=== PATIENT | female | born 1955 | race Caucasian/White ===

== ENCOUNTER 2016-09-14 12:35 | Emergency (ER) | payer OTHER, MEDICAID ==
[2016-09-14 12:50] VITALS: RESP 18; TEMP 98.1
--- NOTE | 2016-09-14 13:38 | EDPHY ---
H & P Time Seen by Provider: 09/14/16 13:05 HPI/ROS: This patient complains of right 5th finger pain at the metacarpophalangeal joint more than the PIP joint. She has noticed this over the past 3 days after awakening with pain on Wednesday morning. The pain is 4/10 intensity baseline becomes more severe with movement. No other exacerbating factors. She does recall any trauma to the finger but wonders if she may have injured it while sleepy getting up from bed catching in the blanket or slamming up against a piece of furniture. She denies any other complaints except for chronic fatigue she attributes to her idiopathic anemia. ROS: Neuro: No numbness or tingling the finger Musculoskeletal: No other acute bony pain or joint pain. She does know mild swelling at the metacarpophalangeal joint of the affected finger. Integumentary: No overlying skin rash or discoloration. 5 point ROS is otherwise negative Past Medical/Surgical History: Morbid obesity Idiopathic anemia Type 2 diabetes Dyslipidemia Chronic pain Smoking Status: Former smoker Physical Exam: Physical Exam Vital signs are normal. General: No acute distress Lungs: No respiratory distress. Cardiac: Brisk capillary refill is intact throughout. Extremities: Atraumatic normal except for right hand Right hand: Patient has tenderness at the 5th metacarpophalangeal joint and PIP joint. She maintains a full range of motion but has increased pain with flexion. There is minimally purse that the bowl swelling at the metacarpophalangeal joint. No overlying erythema. Skin: No rash or pallor. Neuro: Alert with no sensorimotor deficits in the affected extremity. Initial differential diagnosis: Bony lesion, degenerative arthritis, fracture , sprain Constitutional: Initial Vital Signs Temperature (C) 36.7 C 09/14/16 12:40 Heart Rate 94 09/14/16 12:40 Respiratory Rate 18 09/14/16 12:40 Blood Pressure 144/69 H 09/14/16 12:40 O2 Sat (%) 91 L 09/14/16 12:40 O2 Delivery Mode Room Air Allergies/Adverse Reactions: cephalexin monohydrate [From Keflex] Allergy (Intermediate, Verified 09/14/16 12 :38) Rash meperidine HCl [From Demerol] Allergy (Intermediate, Verified 09/14/16 12:38) Vomiting Penicillins Allergy (Intermediate, Verified 09/14/16 12:38) Rash Sulfa (Sulfonamide Antibiotics) Allergy (Intermediate, Verified 09/14/16 12:38) Hives Home Medications: Medication Instructions Recorded Aspirin 02/01/16 Clonazepam 02/01/16 DULoxetine 02/01/16 Estradiol 02/01/16 Furosemide 02/01/16 LISINOPRIL/HYDROCHLOROTHIAZIDE 02/01/16 Linzess 02/01/16 Lisinopril 02/01/16 Novolog Mix 70/30 (*) 02/01/16 Pantoprazole Sodium 02/01/16 Propylene Glycol 02/01/16 Ropinirole HCl 02/01/16 SIMVASTATIN 02/01/16 Trulicity 02/01/16 MDM/Departure - MDM Diagnostics: Hand x-ray is negative for fracture. This film was already read by the radiologist and I also reviewed it. Imaging Results: Imaging Impressions Finger X-Ray 09/14/16 13:10 Impression: No evidence for acute osseous abnormality. Stable mild degenerative change as above. ED Course/Re-evaluation: We keesha-taped the patient's finger for comfort. I counseled regarding her negative x-ray the exception DJD. I suspect that her symptoms are attributable to DJD. She may have also slept on the hand. 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
[2016-09-14 14:05] VITALS: BP 125/72; PULSE 85; O2SAT 96
== END 2016-09-14 13:59 | disposition home or self-care (01) ==
LOC: CED 12:35
DX: M79.644 Pain in right finger(s) (principal); M19.041 Primary osteoarthritis, right hand; E11.9 Type 2 diabetes mellitus without complications; Z79.82 Long term (current) use of aspirin; Z87.891 Personal history of nicotine dependence
CPT/HCPCS: 73140-PO

== ENCOUNTER 2017-03-17 19:24 | Emergency (ER) | payer OTHER, MEDICAID ==
[2017-03-17 19:41] VITALS: RESP 18
--- NOTE | 2017-03-17 20:00 | EDPHY ---
H & P Stated Complaint: diarrhea since 03/07, blood in stool tonight Time Seen by Provider: 03/17/17 19:59 - Personal History Current Tetanus/Diphtheria Vaccine: Yes Tetanus Vaccine Date: <10 years - Medical/Surgical History Hx Asthma: No Hx Chronic Respiratory Disease: No Hx Diabetes: Yes Hx Cardiac Disease: Yes Hx Renal Disease: No Hx Cirrhosis: No Hx Alcoholism: No Hx HIV/AIDS: No Hx Splenectomy or Spleen Trauma: No Other PMH: right wrist carpal tunnel surgery,. back surgery. MEd hx-anemia, thyroid and insulin dependant diabetes,chronic pain, ROLDAN, HTN - Social History Smoking Status: Former smoker Constitutional: Initial Vital Signs Temperature (C) 36.9 C 03/17/17 19:36 Heart Rate 97 03/17/17 19:36 Respiratory Rate 18 03/17/17 19:36 Blood Pressure 155/108 H 03/17/17 19:36 O2 Sat (%) 95 03/17/17 19:36 O2 Delivery Mode Room Air Allergies/Adverse Reactions: cephalexin monohydrate [From Keflex] Allergy (Intermediate, Verified 03/17/17 19 :41) Rash meperidine HCl [From Demerol] Allergy (Intermediate, Verified 03/17/17 19:41) Vomiting Penicillins Allergy (Intermediate, Verified 03/17/17 19:41) Rash Sulfa (Sulfonamide Antibiotics) Allergy (Intermediate, Verified 03/17/17 19:41) Hives gabapentin Allergy (Verified 03/17/17 19:41) Home Medications: Medication Instructions Recorded Aspirin 02/01/16 Clonazepam 02/01/16 DULoxetine 02/01/16 Estradiol 02/01/16 Furosemide 02/01/16 LISINOPRIL/HYDROCHLOROTHIAZIDE 02/01/16 Linzess 02/01/16 Lisinopril 02/01/16 Novolog Mix 70/30 (*) 02/01/16 Pantoprazole Sodium 02/01/16 Propylene Glycol 02/01/16 Ropinirole HCl 02/01/16 SIMVASTATIN 02/01/16 Trulicity 02/01/16 Medical Decision Making ED Course/Re-evaluation: CHIEF COMPLAINT: Rectal bleeding HISTORY OF PRESENT ILLNESS: This patient is a pleasant 61 y/o female with history of hemorrhoids complaining of bright red rectal bleeding. She has had diarrhea since . Today, she has bright red blood per rectum "like one of them red-assed monkeys". She denies constipation. Endorses some darker colored blood clots, but denies melena. She has not noted any blood in her underwear, only with wiping. Endorses current external hemorrhoids. She denies any abdominal pain or rectal discomfort. She is followed by GI and is scheduled for colonoscopy on . She has no further complaints at this time. REVIEW OF SYSTEMS: A 10 point review of systems was performed and is negative with the exception of the elements mentioned in the history of present illness. PHYSICAL EXAM: HR, BP, O2 Sat, RR. Temp noted General Appearance: Alert, well hydrated, appropriate, and non-toxic appearing. Head: Atraumatic without scalp tenderness or obvious injury Eyes: Pupils equal, round, reactive to light and accommodation, EOMI, no trauma , no injection. Ears: Clear bilaterally, no perforation, normal landmarks Nose: Atraumatic, no rhinorrhea, clear. Throat: There is no erythema or exudates, no lesions, normal tonsils, mucus membranes moist. Neck: Supple, nontender, no lymphadenopathy. Respiratory: No retractions, no distress, no wheezes, and no accessory muscle use. Lungs are clear to auscultation bilaterally. Cardiovascular: Regular rate and rhythm. Good capillary refill all extremities. Gastrointestinal: Abdomen is soft, nontender, non-distended, no masses, no rebound, no guarding, no peritoneal signs. Musculoskeletal: Normal active ROM of all extremities, atraumatic. Neurological: Alert, appropriate, and interactive. Nonfocal neuro exam. Skin: No rashes, good turgor, no nodules on palpation. Past medical history: Anemia. Hypothyroid. Insulin-dependent diabetes. Chronic pain. Hypertension. Past surgical history: Right wrist carpal tunnel surgery. Back surgery. Family history: Noncontributory. 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 Lives in [place]. DIFFERENTIAL DIAGNOSIS: Includes but not limited to external hemorrhoids, internal hemorrhoids, lower GI bleed, upper GI bleed, ulcerative colitis, anal fissure, colon polyps. MEDICAL DECISION MAKING: This 61 y/o female with history of hemorrhoids presents for evaluation of bright red bleeding per rectum. History is consistent with internal hemorrhoids. Patient is alert, well-appearing. She agrees that her symptoms are consistent with prior hemorrhoids. Her last colonoscopy was last summer, and she is scheduled for another on 03/30/17, two weeks from now. She declines anoscopy at this time. Plan to discharge home in good condition. She will follow up with GI and proceed with her colonoscopy as scheduled. Return precautions discussed. She is comfortable with this plan. Departure - Departure Disposition: Home, Routine, Self-Care Clinical Impression: Internal hemorrhoid, bleeding Condition: Good Instructions: Hemorrhoids (ED) Additional Instructions: 1. Follow up with your GI doctor for further evaluation. 2. Return to the emergency department if you have large quantities of bright red blood per rectum, dark tar-like stools, if you vomit blood, or if you develop abdominal pain, weakness, or other worsening of condition. Referrals: ADAMA ENGEL [Other] - As per Instructions Sergo Daly MD [Medical Doctor] - As per Instructions Report Scribed for: Tashi Turcios Report Scribed by: Lindsey Morales Date of Report: 03/17/17 Time of Report: 20:33
[2017-03-17 20:23] VITALS: BP 138/86; PULSE 90; TEMP 98.8; O2SAT 91
== END 2017-03-17 20:23 | disposition home or self-care (01) ==
DX: K64.8 Other hemorrhoids (principal); I10 Essential (primary) hypertension; E10.9 Type 1 diabetes mellitus without complications; Z79.82 Long term (current) use of aspirin; Z87.891 Personal history of nicotine dependence

== ENCOUNTER 2017-03-26 14:26 | Emergency (ER) | payer OTHER, MEDICAID ==
--- NOTE | 2017-03-26 15:01 | CPEKG ---
Heart Rate: 94 RR Interval: 638 P-R Interval: 168 QRSD Interval: 90 QT Interval: 360 QTC Interval: 451 P Apollo: 53 QRS Apollo: 57 T Wave Apollo: 2 EKG Severity - BORDERLINE ECG - EKG Impression: SINUS RHYTHM Electronically Signed By: Kwame Pisano 26-Mar-2017 15:16:27
--- NOTE | 2017-03-26 15:12 | EDPHY ---
H & P Stated Complaint: L shoulder/L neck pain vs walked into door jam 1 week ago Time Seen by Provider: 03/26/17 14:58 HPI/ROS: CHIEF COMPLAINT: Left shoulder pain HISTORY OF PRESENT ILLNESS: The patient presents the ED with complaints left shoulder pain for the past 7 days after she accidentally struck a door jam. She denies any associated numbness or weakness. She has pain with palpation associated movement. She denies any chest pain or shortness of breath. The patient denies any additional acute complaints. REVIEW OF SYSTEMS: A comprehensive 10 point review of systems is otherwise negative aside from elements mentioned in the history of present illness. - Personal History Tetanus Vaccine Date: <10 years - Medical/Surgical History Hx Asthma: No Hx Chronic Respiratory Disease: No Hx Diabetes: Yes Hx Cardiac Disease: Yes Hx Renal Disease: No Hx Cirrhosis: No Hx Alcoholism: No Hx HIV/AIDS: No Hx Splenectomy or Spleen Trauma: No Other PMH: right wrist carpal tunnel surgery,. back surgery. gall bladder surg. hysterectomy. MEd hx-anemia,thyroid and insulin dependant diabetes, chronic pain, ROLDAN, HTN - Social History Smoking Status: Former smoker - Physical Exam Exam: General Appearance: Obese female, no acute distress Eyes: Pupils equal and round no pallor or injection ENT, Mouth: Mucous membranes moist Respiratory: There are no retractions, lungs are clear to auscultation Cardiovascular: Regular rate and rhythm Gastrointestinal: Abdomen is soft and nontender, no masses, bowel sounds normal Neurological: A&O, normal motor function, normal sensory exam, normal cranial nerves Skin: Warm and dry, no rashes Musculoskeletal: Tenderness to palpation along the left clavicle and over the proximal humerus, no crepitus, no deformity Extremities: symmetrical, full range of motion Psychiatric: Patient is oriented X 3, there is no agitation Constitutional: Initial Vital Signs Temperature (C) 37.2 C 03/26/17 14:30 Heart Rate 96 03/26/17 14:30 Respiratory Rate 18 03/26/17 14:30 Blood Pressure 117/77 03/26/17 14:30 O2 Sat (%) 94 03/26/17 14:30 O2 Delivery Mode Room Air Allergies/Adverse Reactions: cephalexin monohydrate [From Keflex] Allergy (Intermediate, Verified 03/17/17 19 :41) Rash meperidine HCl [From Demerol] Allergy (Intermediate, Verified 03/17/17 19:41) Vomiting Penicillins Allergy (Intermediate, Verified 03/17/17 19:41) Rash Sulfa (Sulfonamide Antibiotics) Allergy (Intermediate, Verified 03/17/17 19:41) Hives gabapentin Allergy (Verified 03/17/17 19:41) Home Medications: Medication Instructions Recorded Aspirin 02/01/16 Clonazepam 02/01/16 DULoxetine 02/01/16 Estradiol 02/01/16 Furosemide 02/01/16 LISINOPRIL/HYDROCHLOROTHIAZIDE 02/01/16 Linzess 02/01/16 Lisinopril 02/01/16 Novolog Mix 70/30 (*) 02/01/16 Pantoprazole Sodium 02/01/16 Propylene Glycol 02/01/16 Ropinirole HCl 02/01/16 SIMVASTATIN 02/01/16 Trulicity 02/01/16 Hydrocodone/APAP 5/325 [[place] 1 - 2 each PO Q6 PRN #20 tab 03/26/17 5/325] Lidocaine 5% [Lidoderm 5% Patch 1 ea TD DAILY #12 patch 03/26/17 (*)] Ondansetron Odt [Zofran Odt] 4 mg PO Q4PRN PRN #20 tab 03/26/17 Medical Decision Making - Diagnostics EKG Interpretation: EKG: Complete interpretation has been separately recorded in the [facility] archive. Summary impression: Sinus rhythm Imaging Results: Imaging Impressions Shoulder X-Ray 03/26/17 15:07 Impression: 1. No acute fracture or AC separation. 2. Osteoarthritis and features suggestive of rotator cuff calcific tendinitis. ED Course/Re-evaluation: The patient presents the ED for evaluation of traumatic left shoulder pain. Her x-ray demonstrates no evidence of an obvious fracture. The patient is noted to be neurologically intact. Her EKG is unremarkable. The patient was placed in a sling. She was given Zofran and pain medications. She is also given a prescription for lidocaine patches. The patient is advised to follow up with our on-call orthopedic surgeon for any pain which persists past 7 days as this may be the sign of an injury which is not detected on x-ray today. Differential Diagnosis: Differential diagnosis considered includes fracture, sprain, dislocation - Data Points Medications Given: Discontinued Medications Hydrocodone Bitart/Acetaminophen ([place] 5/325) 2 tab PO EDNOW ONE Stop: 03/26/17 15:43 Last Admin: 03/26/17 15:47 Dose: 2 tab Lidocaine (Lidoderm 5%) 1 ea TD EDNOW ONE Stop: 03/26/17 15:42 Last Admin: 03/26/17 15:48 Dose: 1 ea Ondansetron HCl (Zofran Odt) 4 mg PO EDNOW ONE Stop: 03/26/17 15:43 Last Admin: 03/26/17 15:47 Dose: 4 mg Departure - Departure Disposition: Home, Routine, Self-Care Clinical Impression: Sprain of shoulder, left Condition: Good Instructions: Shoulder Sprain (ED) Additional Instructions: 1. Take Ibuprofen or Motrin 600 mg by mouth three times a day. 2. Lidocaine patch as needed for pain. 3. Please schedule a follow-up with our on-call orthopedic surgeon Dr. Chase for any unimproved symptoms. 4. Zofran as needed for nausea 5. [place] as needed for severe pain Referrals: [facility] [Other] - As per Instructions Prescriptions: Lidocaine 5% [Lidoderm 5% Patch (*)] 1 ea TD DAILY #12 patch Ondansetron Odt [Zofran Odt] 4 mg PO Q4PRN PRN #20 tab PRN Reason: For Nausea
[2017-03-26] MEDS ORDERED: LIDOCAINE 5% 1 EA PATCH TD ONE (15:41)
[2017-03-26] MEDS ORDERED: ONDANSETRON DISINTEGRATING 4 MG TAB PO ONE (15:42)
[2017-03-26] MEDS ORDERED: HYDROCODONE/APAP 5/325 TAB PO ONE (15:42)
[2017-03-26 16:11] VITALS: BP 120/70; PULSE 70; RESP 14; TEMP 98.2; O2SAT 98
[2017-03-26] MEDS ORDERED: PATCH REMOVAL 1 EA PATCH TD SCH (21:00)
== END 2017-03-26 16:12 | disposition home or self-care (01) ==
DX: S43.402A Unspecified sprain of left shoulder joint, initial encounter (principal); I10 Essential (primary) hypertension; E11.9 Type 2 diabetes mellitus without complications; Z87.891 Personal history of nicotine dependence; Z79.82 Long term (current) use of aspirin; Z79.4 Long term (current) use of insulin; W22.8XXA Striking against or struck by other objects, initial encounter

== ENCOUNTER 2017-04-22 14:35 | Emergency (ER) | payer OTHER, MEDICAID ==
[2017-04-22 14:40] VITALS: RESP 18
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
[2017-04-22] MEDS ORDERED: OXYCODONE/APAP 5/325 TAB PO ONE (16:19)
[2017-04-22 16:23] VITALS: BP 113/65; PULSE 80; TEMP 97.5; O2SAT 95
== END 2017-04-22 16:52 | disposition home or self-care (01) ==
DX: S39.012A Strain of muscle, fascia and tendon of lower back, initial encounter (principal); S76.011A Strain of muscle, fascia and tendon of right hip, initial encounter; I10 Essential (primary) hypertension; E11.9 Type 2 diabetes mellitus without complications; Z87.891 Personal history of nicotine dependence; Z79.82 Long term (current) use of aspirin; Z79.4 Long term (current) use of insulin; V00.838A Other accident with motorized mobility scooter, initial encounter

== ENCOUNTER 2017-05-03 15:07 | Emergency (ER) | payer OTHER, MEDICAID ==
[2017-05-03] MEDS ORDERED: HYDROmorphONE/DILAUDID 1 MG/ML INJ IVP ONE (15:50)
--- NOTE | 2017-05-03 15:54 | EDPHY ---
H & P Stated Complaint: left shoulder pain, can't sleep at night Time Seen by Provider: 05/03/17 15:25 HPI/ROS: CHIEF COMPLAINT: Left shoulder pain HISTORY OF PRESENT ILLNESS: This is a 62-year-old female with multiple medical problems including insulin-dependent diabetes, hypertension, chronic pain, and obesity. She presents today with left shoulder pain that has been present since March. In March she ran into a door jam with her left shoulder and has had pain since. She was seen at [facility] Emergency Department on March 26. At that time she had an EKG performed and a left shoulder x-ray that showed calcific tendinitis suggestive of rotator cuff. She was referred to Orthopedic surgery but has not followed up. At home she has tried occasional Aleve, heat, massage, and last week she took 2 left over tramadol. None of these have helped very much or for very long. She has been advised that she should not take NSAIDs but she is not certain why. She has had no new trauma. She denies numbness or weakness. The pain is sometimes worse at night and she finds it difficult to get into a comfortable position for sleep. She is right handed. REVIEW OF SYSTEMS: A ten point review of systems was performed and is negative with the exception of the items mentioned in the HPI. She also mentions that her voice is hoarse today. She does not have a sore throat. She is having some shortness of breath , worse with exertion. She notices it particularly to day. She does not have chest pain. She had a cardiac workup 1 year ago and has been told that she has a strong heart. It does not sound as if she had any stress testing performed. Past medical history: 1. IDDM 2. Hypertension 3. Hypothyroid 4. Chronic pain 5. Anemia 6. Obesity Past surgical history: 1. Cholecystectomy 2. Hysterectomy 3. Lumbar surgery 4. Bilateral carpal tunnel release Social history: She lives with her daughter. She quit smoking over 30 years ago. She drinks alcohol on rare occasion. General Appearance: Alert. Vital signs reviewed. Room air pulse ox 96%. Respiratory rate 20. Eyes: Pupils equal and round, no conjunctival injection, no discharge. Anicteric. Neck: No lymphadenopathy, supple. Nontender over the cervical spine. Respiratory: Lungs are clear to auscultation; no wheezes, rales, or rhonchi. Cardiovascular: Regular rate and rhythm; no murmur, rub, or gallop. Gastrointestinal: Abdomen is soft and nontender, obese. Skin: Warm and diaphoretic on the face, no rashes on exposed skin, normal color. Back: Nontender to palpation over the thoracolumbar spine. Extremities: No obvious shoulder asymmetry. There is tenderness to palpation over the left trapezius with some palpable muscle spasm. She has pain with abduction of her left arm above 90 degrees, no drop arm weakness and no difficulty with external rotation on the left.. Strength is 5/5 with testing of bilateral bed control specialist, biceps, and triceps. Neurological: Alert and oriented. Moving all four extremities easily and equally. Normal sensation to light touch over both upper extremities. Psychiatric: Normal affect. - Personal History Tetanus Vaccine Date: <10 years - Medical/Surgical History Hx Asthma: No Hx Chronic Respiratory Disease: No Hx Diabetes: Yes Hx Cardiac Disease: No Hx Renal Disease: No Hx Cirrhosis: No Hx Alcoholism: No Hx HIV/AIDS: No Hx Splenectomy or Spleen Trauma: No Other PMH: right wrist carpal tunnel surgery,. back surgery. gall bladder surg. hysterectomy. MEd hx-anemia,and insulin dependant diabetes,chronic pain , ROLDAN, HTN - Social History Smoking Status: Former smoker Constitutional: Initial Vital Signs Temperature (C) 36.7 C 05/03/17 15:10 Heart Rate 87 05/03/17 15:10 Respiratory Rate 20 05/03/17 15:10 Blood Pressure 113/82 H 05/03/17 15:10 O2 Sat (%) 96 05/03/17 15:10 O2 Delivery Mode Room Air Allergies/Adverse Reactions: cephalexin monohydrate [From Keflex] Allergy (Intermediate, Verified 05/03/17 15 :15) Rash meperidine HCl [From Demerol] Allergy (Intermediate, Verified 05/03/17 15:15) Vomiting Penicillins Allergy (Intermediate, Verified 05/03/17 15:15) Rash Sulfa (Sulfonamide Antibiotics) Allergy (Intermediate, Verified 05/03/17 15:15) Hives gabapentin Allergy (Verified 05/03/17 15:15) Rash Home Medications: Medication Instructions Recorded Aspirin 02/01/16 Clonazepam 02/01/16 DULoxetine 02/01/16 Estradiol 02/01/16 Furosemide 02/01/16 LISINOPRIL/HYDROCHLOROTHIAZIDE 02/01/16 Linzess 02/01/16 Lisinopril 02/01/16 Novolog Mix 70/30 (*) 02/01/16 Pantoprazole Sodium 02/01/16 Propylene Glycol 02/01/16 Ropinirole HCl 02/01/16 SIMVASTATIN 02/01/16 Trulicity 02/01/16 Lidocaine 5% [Lidoderm 5% Patch 1 ea TD DAILY #12 patch 03/26/17 (*)] Cyclobenzaprine [Flexeril 10 MG 10 mg PO TID PRN #15 tab 05/03/17 (*)] oxyCODONE/APAP 5/325 [Percocet 1 - 2 tab PO Q4H PRN #15 tab 05/03/17 5/325 (RX)] Medical Decision Making ED Course/Re-evaluation: Left shoulder pain that I suspect is musculo skeletal, possibly a rotator cuff tendinopathy or injury. She has a history of chronic pain but has not taken opioids for quite some time. In the past she has been on multiple pain medications. She now uses CBD for restless legs and an occasional Aleve. She was given a small quantity of Lugoff in March but states that it did not help her very much. She had 2 left over tramadol that she took last week, with minimal relief. I do not feel that would be beneficial to repeat her left shoulder x-ray as there has been no new trauma. I stressed the importance of follow-up with an orthopedist. She was unable to reach Dr. Chase's office. I am prescribed providing his number again and also the number of today's on-call orthopedist. She has been seen at [facility] in the past for carpal tunnel syndrome and I have advised her to call them for follow-up also. For now will try to achieve some pain relief for her. She is being given 2 Percocet p.o. in the emergency department. She will be discharged home with prescription for Percocet dispense #15 and Flexeril. I do not suspect drug-seeking behavior. Differential Diagnosis: I considered a differential diagnosis that includes but is not limited to fracture, dislocation, bursitis, tendinopathy, rotator cuff injury, and impingement. - Data Points Medications Given: Discontinued Medications Hydromorphone HCl (Dilaudid) 1 mg IVP EDNOW ONE Stop: 05/03/17 15:51 Last Admin: 05/03/17 16:01 Dose: Not Given Oxycodone/Acetaminophen (Percocet 5/325) 2 tab PO EDNOW ONE Stop: 05/03/17 16:04 Last Admin: 05/03/17 16:06 Dose: 2 tab Departure - Departure Disposition: Home, Routine, Self-Care Clinical Impression: Shoulder pain, left Qualifiers: Chronicity: chronic Qualified Code(s): M25.512 - Pain in left shoulder Condition: Good Instructions: Shoulder Pain (ED) Additional Instructions: You were referred to Dr. Anjel Chase in March and I am providing that referral again. I am also referring her to the orthopedist on duty for the emergency department today. Since you have been seen at [facility] , I recommend that you call them to see if you can arrange an appointment to have your shoulder evaluated. Referrals: Darryn Palacio MD [Medical Doctor] - As per Instructions Anjel Chase MD [Medical Doctor] - As per Instructions Stand Alone Forms: Narcotic Guidelines Prescriptions: Cyclobenzaprine [Flexeril 10 MG (*)] 10 mg PO TID PRN #15 tab PRN Reason: Spasms oxyCODONE/APAP 5/325 [Percocet 5/325 (RX)] 1 - 2 tab PO Q4H PRN #15 tab PRN Reason: Pain, Severe
[2017-05-03] MEDS ORDERED: OXYCODONE/APAP 5/325 TAB ONE (16:00)
[2017-05-03] MEDS ORDERED: OXYCODONE/APAP 5/325 TAB PO ONE (16:03)
[2017-05-03 16:39] VITALS: BP 110/70; PULSE 72; RESP 14; TEMP 97.9; O2SAT 95
== END 2017-05-03 16:38 | disposition home or self-care (01) ==
LOC: CED 15:07
DX: M25.512 Pain in left shoulder (principal); E11.9 Type 2 diabetes mellitus without complications; I10 Essential (primary) hypertension; Z79.4 Long term (current) use of insulin; Z79.82 Long term (current) use of aspirin; Z87.891 Personal history of nicotine dependence

== ENCOUNTER → 2017-05-25 | Outpatient (CLI) | payer OTHER, MEDICAID | LOC: CIMAGING 08:39 | PROVIDERS: ATTEND Internal Medicine | DX: Z13.89 Encounter for screening for other disorder (principal) | CPT/HCPCS: 76705-PO ==

== ENCOUNTER 2017-06-02 15:47 | Emergency (ER) | payer OTHER, MEDICAID ==
[2017-06-02] MEDS ORDERED: NS 1,000 ML IV ONE (16:32)
[2017-06-02] MEDS ORDERED: ONDANSETRON 4 MG/2 ML VIAL IVP ONE (16:32)
[2017-06-02] MEDS ORDERED: HYDROmorphONE/DILAUDID 2 MG/ML INJ IVP ONE ×2 (16:32→18:39)
--- NOTE | 2017-06-02 16:35 | EDPHY ---
H & P Stated Complaint: Abd pain ~3 yrs;worse over past 24 hrs;sent here by surg for CT scan Time Seen by Provider: 06/02/17 16:24 HPI/ROS: CHIEF COMPLAINT: Right groin pain HISTORY OF PRESENT ILLNESS: Patient is a 62-year-old morbidly obese female comes to the emergency department complaining of right lower quadrant/inguinal pain. She states that she has had this pain for about 3 years and has seen multiple doctors. She states that she has had colonoscopies and swallowed pill cameras and had CT scans and no diagnosis has been made. She has a history of appendectomy, cholecystectomy and total hysterectomy. 1 week ago she had an ultrasound to rule out hernia. Her primary referred her to Dr. Marcelina Contreras saw her today. She states that today her pain is significantly worse than baseline. Dr. Contreras requested she come to the ER for CT scanning. She has not had a fever. She states that she is constipated in the morning and then has diarrhea in the evenings. She does not take laxatives. No urinary symptoms. No fevers. REVIEW OF SYSTEMS: Constitutional: denies: chills, fever, recent illness, recent injury EENTM: denies: blurred vision, double vision, nose congestion Respiratory: denies: cough, shortness of breath Cardiac: denies: chest pain, irregular heart rate, lightheadedness, palpitations Gastrointestinal/Abdominal: See HPI Genitourinary: denies: dysuria, frequency, hematuria, pain Musculoskeletal: denies: joint pain, muscle pain Skin: denies: lesions, rash, jaundice, bruising Neurological: denies: headache, numbness, paresthesia, tingling, dizziness, weakness Hematologic/Lymphatic: denies: blood clots, easy bleeding, easy bruising Immunologic/allergic: denies: HIV/AIDS, transplant EXAM: GENERAL: Morbidly obese, in pain, writhing HEAD: Atraumatic, normocephalic. EYES: Pupils equal round and reactive to light, extraocular movements intact, sclera anicteric, conjunctiva are normal. ENT: TMs normal, nares patent, oropharynx clear without exudates. Moist mucous membranes. NECK: Normal range of motion, supple without lymphadenopathy or JVD. LUNGS: Breath sounds clear to auscultation bilaterally and equal. No wheezes rales or rhonchi. HEART: Regular rate and rhythm without murmurs, rubs or gallops. ABDOMEN: Tender right lower quadrant inguinal region, no palpable hernia palm morbid obesity, no rash. normoactive bowel sounds. No guarding, no rebound. No masses appreciated. BACK: No CVA tenderness, no spinal tenderness, step-offs or deformities EXTREMITIES: Normal range of motion, no pitting or edema. No clubbing or cyanosis. NEUROLOGICAL: Cranial nerves II through XII grossly intact. Normal speech, normal gait. 5/5 strength, normal movement in all extremities, normal sensation PSYCH: Normal mood, normal affect. SKIN: Warm, dry, normal turgor, no visible rashes or lesions. Source: Patient Exam Limitations: No limitations - Personal History Current Tetanus Diphtheria and Acellular Pertussis (TDAP): Yes Tetanus Vaccine Date: <10 years - Medical/Surgical History Hx Asthma: No Hx Chronic Respiratory Disease: No Hx Diabetes: Yes Hx Cardiac Disease: No Hx Renal Disease: No Hx Cirrhosis: No Hx Alcoholism: No Hx HIV/AIDS: No Hx Splenectomy or Spleen Trauma: No Other PMH: right wrist carpal tunnel surgery,. back surgery. gall bladder surg. hysterectomy. MEd hx-anemia,and insulin dependant diabetes,chronic pain , ROLDAN, HTN - Family History Significant Family History: No pertinent family hx - Social History Smoking Status: Former smoker Alcohol Use: Sober Drug Use: None Constitutional: Initial Vital Signs Temperature (C) 36.6 C 06/02/17 15:50 Heart Rate 78 06/02/17 15:50 Respiratory Rate 18 06/02/17 15:50 Blood Pressure 127/76 H 06/02/17 15:50 O2 Sat (%) 96 06/02/17 15:50 O2 Delivery Mode Nasal Cannula Allergies/Adverse Reactions: cephalexin monohydrate [From Keflex] Allergy (Intermediate, Verified 06/02/17 15 :50) Rash meperidine HCl [From Demerol] Allergy (Intermediate, Verified 06/02/17 15:50) Vomiting Penicillins Allergy (Intermediate, Verified 06/02/17 15:50) Rash Sulfa (Sulfonamide Antibiotics) Allergy (Intermediate, Verified 06/02/17 15:50) Hives gabapentin Allergy (Verified 06/02/17 15:50) Rash Home Medications: Medication Instructions Recorded Aspirin [Aspirin 325 mg (*)] 325 mg PO DAILY 06/02/17 DULoxetine [Cymbalta 60 MG (*)] 60 mg PO DAILY 06/02/17 Estradiol [Estradiol 1 MG (*)] 1 mg PO DAILY 06/02/17 Furosemide [Lasix 20 MG (*)] 20 mg PO 06/02/17 Insulin Aspart [novoLOG] unit SC AC 06/02/17 Linaclotide [Linzess] 145 mcg PO 06/02/17 Lisinopril [Zestril 20 mg (*)] 20 mg PO 06/02/17 Lisinopril/Hydrochlorothiazide 1 each PO 06/02/17 [Lisinopril-Hctz 10-12.5 mg Tab] Pantoprazole Sodium [Protonix 40mg 40 mg PO 06/02/17 (*)] SIMVASTATIN 10 mg PO 06/02/17 Trulicity 06/02/17 clonazePAM [klonoPIN (*)] 1 mg PO 06/02/17 rOPINIRole HCL [Requip 1mg (*)] 1 mg PO 06/02/17 Medical Decision Making - Diagnostics Imaging Results: Imaging Impressions Abdomen CT 06/02/17 16:59 Impression: 1. Previous cholecystectomy and appendectomy without bowel obstruction, abscess or focal fluid collection. 2. A few mesenteric lymph nodes without significant adenopathy. 3. Atherosclerotic aorta without aneurysm. 4. Small periumbilical fat-containing abdominal wall hernia defect without evidence of inguinal hernia or fluid collection. 5. No diverticulitis, urinary tract obstruction, colitis, or abscess. Findings and recommendations discussed with Emergency Department physician, Rashel Drew at 1821 hour, 06/02/2017. Final report concurs with initial preliminary interpretation. Imaging: Discussed imaging studies w/ call center support representative Radiologist ED Course/Re-evaluation: 6:[address] we discussed the CT results. The patient states that she is not surprised because they never find anything wrong. She is feeling much better. Her abdominal exam is now benign. I recommended she return follow up with Dr. Contreras and with her primary doctor. She is happy with this and declines further workup or testing. She does not have any urinary symptoms. 8:30 p.m. I did review the images with Dr. Contreras who agrees with this nothing concerning at this time. Differential Diagnosis: Partial list of the Differential diagnosis considered include but were not limited to; hernia, abscess, obstruction, diverticulitis and although unlikely based on the history and physical exam, I also considered kidney stone, urinary tract infection, vaginitis, cellulitis. I discussed these differential diagnoses and the plan with the patient as well as the usual and expected course. The patient understands that the diagnosis is provisional and that in medicine we are not always correct and that further workup is often warranted. Usual and customary warnings were given. All of the patient's questions were answered. The patient was instructed to return to the emergency department should the symptoms at all worsen or return, otherwise to followup with the physician as we discussed. - Data Points Laboratory Results: Laboratory Results 06/02/17 17:00 06/02/17 17:00 06/02/17 06/02/17 06/02/17 17:00 17:00 17:00 WBC 10.04 10^3/uL H 10^3/uL (3.80-9.50) RBC 4.20 10^6/uL 10^6/uL (4.18-5.33) Hgb 12.8 g/dL g/dL (12.6-16.3) Hct 37.4 % L % (38.0-47.0) MCV 89.0 fL fL (81.5-99.8) MCH 30.5 pg pg (27.9-34.1) MCHC 34.2 g/dL g/dL (32.4-36.7) RDW 14.1 % % (11.5-15.2) Plt Count 238 10^3/uL 10^3/uL (150-400) MPV 10.2 fL fL (8.7-11.7) Neut % (Auto) 67.8 % % (39.3-74.2) Lymph % (Auto) 22.3 % % (15.0-45.0) [place] % (Auto) 5.7 % % (4.5-13.0) Eos % (Auto) 2.2 % % (0.6-7.6) Baso % (Auto) 1.4 % % (0.3-1.7) Nucleat RBC Rel Count 0.0 % % (0.0-0.2) Absolute Neuts (auto) 6.81 10^3/uL H 10^3/uL (1.70-6.50) Absolute Lymphs (auto) 2.24 10^3/uL 10^3/uL (1.00-3.00) Absolute Monos (auto) 0.57 10^3/uL 10^3/uL (0.30-0.80) Absolute Eos (auto) 0.22 10^3/uL 10^3/uL (0.03-0.40) Absolute Basos (auto) 0.14 10^3/uL H 10^3/uL (0.02-0.10) Absolute Nucleated RBC 0.00 10^3/uL 10^3/uL (0-0.01) Immature Gran % 0.6 % % (0.0-1.1) Immature Gran # 0.06 10^3/uL 10^3/uL (0.00-0.10) PT 13.3 SEC SEC (12.0-15.0) INR 0.99 (0.83-1.16) APTT 28.5 SEC SEC (23.0-38.0) Sodium 138 mEq/L mEq/L (135-145) Potassium 4.1 mEq/L mEq/L (3.5-5.2) Chloride 100 mEq/L mEq/L (97-110) Carbon Dioxide 25 mEq/l mEq/l (22-31) Anion Gap 13 mEq/L mEq/L (8-16) BUN 11 mg/dL mg/dL (7-23) Creatinine 0.6 mg/dL mg/dL (0.6-1.0) Estimated GFR > 60 Glucose 119 mg/dL H mg/dL (70-100) Calcium 9.2 mg/dL mg/dL (8.5-10.4) Total Bilirubin 0.5 mg/dL mg/dL (0.1-1.4) Conjugated Bilirubin 0.4 mg/dL mg/dL (0.0-0.5) Unconjugated Bilirubin 0.1 mg/dL mg/dL (0.0-1.1) AST 44 IU/L IU/L (14-46) ALT 48 IU/L IU/L (9-52) Alkaline Phosphatase 115 IU/L IU/L (38-126) Total Protein 7.3 g/dL g/dL (6.3-8.2) Albumin 3.9 g/dL g/dL (3.5-5.0) Lipase 116 IU/L IU/L (23-300) Urine Color Urine Appearance Urine pH Ur Specific [place] Urine Protein Urine Ketones Urine Blood Urine Nitrate Urine Bilirubin Urine Urobilinogen Ur Leukocyte Esterase Urine RBC Urine WBC Ur Epithelial Cells Urine Bacteria Urine Mucus Urine Glucose 06/02/17 16:35 WBC RBC Hgb Hct MCV MCH MCHC RDW Plt Count MPV Neut % (Auto) Lymph % (Auto) [place] % (Auto) Eos % (Auto) Baso % (Auto) Nucleat RBC Rel Count Absolute Neuts (auto) Absolute Lymphs (auto) Absolute Monos (auto) Absolute Eos (auto) Absolute Basos (auto) Absolute Nucleated RBC Immature Gran % Immature Gran # PT INR APTT Sodium Potassium Chloride Carbon Dioxide Anion Gap BUN Creatinine Estimated GFR Glucose Calcium Total Bilirubin Conjugated Bilirubin Unconjugated Bilirubin AST ALT Alkaline Phosphatase Total Protein Albumin Lipase Urine Color YELLOW Urine Appearance HAZY Urine pH 5.0 (5.0-7.5) Ur Specific [place] 1.012 (1.002-1.030) Urine Protein NEGATIVE (NEGATIVE) Urine Ketones NEGATIVE (NEGATIVE) Urine Blood NEGATIVE (NEGATIVE) Urine Nitrate NEGATIVE (NEGATIVE) Urine Bilirubin NEGATIVE (NEGATIVE) Urine Urobilinogen NEGATIVE EU EU (0.2-1.0) Ur Leukocyte Esterase NEGATIVE (NEGATIVE) Urine RBC 1-3 /hpf /hpf (0-3) Urine WBC 1-3 /hpf /hpf (0-3) Ur Epithelial Cells TRACE /lpf /lpf (NONE-1+) Urine Bacteria 3+ /hpf H /hpf (NONE SEEN) Urine Mucus TRACE /lpf /lpf (NONE-1+) Urine Glucose NEGATIVE (NEGATIVE) Medications Given: Discontinued Medications Hydromorphone HCl (Dilaudid) 1 mg IVP EDNOW ONE Stop: 06/02/17 16:33 Last Admin: 06/02/17 16:58 Dose: 1 mg Hydromorphone HCl (Dilaudid) 1 mg IVP EDNOW ONE Stop: 06/02/17 18:40 Last Admin: 06/02/17 18:40 Dose: 1 mg Sodium Chloride (Ns) 1,000 mls @ 0 mls/hr IV EDNOW ONE; Wide Open PRN Reason: Protocol Stop: 06/02/17 16:33 Last Admin: 06/02/17 16:59 Dose: 1,000 mls Ondansetron HCl (Zofran) 4 mg IVP EDNOW ONE Stop: 06/02/17 16:33 Last Admin: 06/02/17 16:59 Dose: 4 mg Departure - Departure Disposition: Home, Routine, Self-Care Clinical Impression: Abdominal pain Qualifiers: Abdominal location: right lower quadrant Qualified Code(s): R10.31 - Right lower quadrant pain Condition: Fair Instructions: Chronic Abdominal Pain (ED) Referrals: ADAMA BROWN [Other] - As per Instructions Jason Contreras MD [Medical Doctor] - 2-3 days without fail
[2017-06-02 17:09] LABS: PLATELET COUNT 238 10^3/uL (150-400)
[2017-06-02 17:19] LABS: INR 0.99 (0.83-1.16); PROTIME(PATIENT) 13.3 SEC (12.0-15.0)
[2017-06-02] MEDS ORDERED: IOPAMIDOL (ISOVUE-300) 100 ML BTL ONE (17:29)
[2017-06-02] MEDS ORDERED: HYDROmorphONE/DILAUDID 2 MG/ML INJ ONE (18:37)
[2017-06-02 19:16] VITALS: BP 134/78; PULSE 74; RESP 18; TEMP 98.6; O2SAT 96
== END 2017-06-02 19:16 | disposition home or self-care (01) ==
DX: R10.31 Right lower quadrant pain (principal); I10 Essential (primary) hypertension; E11.9 Type 2 diabetes mellitus without complications; E86.9 Volume depletion, unspecified; Z79.4 Long term (current) use of insulin; Z79.82 Long term (current) use of aspirin; Z87.891 Personal history of nicotine dependence; Z90.710 Acquired absence of both cervix and uterus; Z90.49 Acquired absence of other specified parts of digestive tract
CPT/HCPCS: 74177; 96361; 96374; 96375; 96376; 99285; J1170; J2405; Q9967

== ENCOUNTER 2017-06-08 11:17 | Observation (INO) | payer OTHER, MEDICAID ==
[2017-06-08] MEDS ORDERED: CLINDAMYCIN 900 MG/DEXTROSE 50 ML IV ONE (11:30)
[2017-06-08] MEDS ORDERED: LR 1,000 ML IV ONE (11:31)
[2017-06-08] MEDS ORDERED: LIDOCAINE 1% 2 ML INJ ID PRN (11:31)
--- NOTE | 2017-06-08 11:32 | PDHPUP ---
History & Physical Update H&P update statement: This history and physical update is based on an assessment of the patient which was completed after admission or registration (within 24 hours), but prior to the surgery/procedure. H&P update: H&P reviewed & patient examined, no change in patient's condition since H&P completed
[2017-06-08] MEDS ORDERED: ONDANSETRON 4 MG/2 ML VIAL IVP ONE (12:45)
[2017-06-08] MEDS ORDERED: BUPIVACAINE 0.5% 30 ML SDV ONE (13:03)
[2017-06-08] MEDS ORDERED: MIDAZOLAM 2 MG/2 ML VIAL ONE (13:08)
[2017-06-08] MEDS ORDERED: fentaNYL 100 MCG/2 ML INJ ONE ×3 (13:12→15:44)
[2017-06-08] MEDS ORDERED: PROPOFOL 200 MG/20 ML VIAL ONE ×2 (13:12)
[2017-06-08] MEDS ORDERED: DEXAMETHASONE 4 MG/ML VIAL ONE ×2 (13:31→15:09)
[2017-06-08] MEDS ORDERED: MIDAZOLAM 2 MG/2 ML VIAL IVP ONE (13:32)
--- NOTE | 2017-06-08 13:35 | PDANEPAE ---
ANE History of Present Illness abdominal pain, ventral hernia ANE Past Medical History - Cardiovascular History Hx Hypertension: Yes Hx Arrhythmias: No Hx Chest Pain: No Hx Coronary Artery / Peripheral Vascular Disease: No Hx CHF / Valvular Disease: No Hx Palpitations: No - Pulmonary History Hx COPD: No Hx Asthma/Reactive Airway Disease: No Hx Recent Upper Respiratory Infection: Yes Hx Oxygen in Use at Home: Yes Hx Sleep Apnea: Yes Sleep Apnea Screening Result - Last Documented: Positive Pulmonary History Comment: 5 LITERS AT [facility] - Neurologic History Hx Cerebrovascular Accident: No Hx Seizures: No Hx Dementia: No - Endocrine History Hx Diabetes: Yes Hypothyroid: No Hyperthyroid: No Obesity: severe Endocrine History Comment: DIABETES - Renal History Hx Renal Disorders: No - Liver History Hx Hepatic Disorders: No Hepatic History Comment: HEP B - Neurological & Psychiatric Hx Hx Neurological and Psychiatric Disorders: Yes Neurological / Psychiatric History Comment: ANXIETY/DEPRESSION - Cancer History Hx Cancer: No - Congenital Disorder History Hx Congenital Disorders: Yes Congenital History Comment: SMALL SPINAL CANAL - GI History Hx Gastrointestinal Disorders: Yes Gastrointestinal History Comment: NAUSEA, VOMITING, ABDOMINAL PAIN - Other Health History Other Health History: DENTURES UPPER AND LOWERS BUT DOESNT WEAR. 1990 PE. ANEMIA IN PAST - Chronic Pain History Chronic Pain: Yes (ABD PAIN & BACK PAIN) - Surgical History Prior Surgeries: BACK SURG FUSION LUMBAR X2. cholecystecomy. hysterectomy. bladder repair/hernia repair. trigger thumbs bilat. bilat carpal tunnel. APPENDECTOMY ANE Review of Systems Review of systems is: negative Review of Systems: - Exercise capacity METS (RN): 3 METS ANE Patient History - Allergies Allergies/Adverse Reactions: cephalexin monohydrate [From Keflex] Allergy (Intermediate, Verified 06/02/17 15 :50) Rash meperidine HCl [From Demerol] Allergy (Intermediate, Verified 06/02/17 15:50) Vomiting Penicillins Allergy (Intermediate, Verified 06/02/17 15:50) Rash Sulfa (Sulfonamide Antibiotics) Allergy (Intermediate, Verified 06/02/17 15:50) Hives gabapentin Allergy (Verified 06/02/17 15:50) Rash - Home Medications Home medications: home medication list seen and reviewed Home Medications: Aspirin [Aspirin 325 mg (*)] 325 mg PO DAILY 06/02/17 [Last Taken 06/07/17] DULoxetine [Cymbalta 60 MG (*)] 60 mg PO DAILY 06/02/17 [Last Taken 06/07/17] Estradiol [Estradiol 1 MG (*)] 1 mg PO DAILY 06/02/17 [Last Taken 06/07/17] Furosemide [Lasix 20 MG (*)] 20 mg PO 06/02/17 [Last Taken 06/06/17] Insulin Aspart [novoLOG] unit SC AC 06/02/17 [Last Taken 06/07/17] Linaclotide [Linzess] 145 mcg PO 06/02/17 [Last Taken 06/07/17] Lisinopril [Zestril 20 mg (*)] 20 mg PO 06/02/17 [Last Taken 06/06/17] Lisinopril/Hydrochlorothiazide [Lisinopril-Hctz 10-12.5 mg Tab] 1 each PO [Last Taken 06/06/17] Pantoprazole Sodium [Protonix 40mg (*)] 40 mg PO 06/02/17 [Last Taken 06/07/17] RX: SIMVASTATIN 10 mg PO 06/02/17 [Last Taken 06/07/17] Trulicity 06/02/17 [Last Taken 06/08/17] clonazePAM [klonoPIN (*)] 1 mg PO 06/02/17 [Last Taken 06/07/17] rOPINIRole HCL [Requip 1mg (*)] 1 mg PO 06/02/17 [Last Taken 06/07/17] - NPO status NPO Since - Liquids (Date): 06/08/17 NPO Since - Liquids (Time): 09:49 NPO Since - Solids (Date): 06/07/17 NPO Since - Solids (Time): 21:49 - Smoking Hx Smoking Status: Former smoker - Family Anes Hx Family Hx Anesthesia Complications: NEG ANE Labs/Vital Signs - Vital Signs Blood Pressure: 123/63 Heart Rate: 74 Respiratory Rate: 14 O2 Sat (%): 93 Height: 162.56 cm Weight: 131.542 kg ANE Physical Exam - Airway Neck exam: FROM Mallampati Score: Class 1 Mouth exam: dentures - Pulmonary Pulmonary: no respiratory distress - Cardiovascular Cardiovascular: regular rate and rhythym - ASA Status ASA Status: III ANE Anesthesia Plan Anesthesia Plan: general endotracheal anesthesia Specialized Airway: video laryngoscope Urgent/Emergent Case: Anes eval completed preop but documented later for safe timely pt care
--- NOTE | 2017-06-08 13:40 | POSTANESTH ---
Post Anesthetic Evaluation Cardiovascular Status: Normal, Stable Respiratory Status: Normal, Stable Level of Consciousness/Mental Status: Can Participate in Eval Pain Control: Adequate, Prn Tx Ordered Nausea/Vomiting Control: Adequate, Prn Tx Ordered Complications Possibly Related to Anesthesia: None Noted
[2017-06-08] MEDS ORDERED: oxyCODONE IR 5 MG TAB PO PRN (14:52)
[2017-06-08] MEDS ORDERED: HYDROCODONE/APAP 5/325 TAB PO PRN (14:52)
[2017-06-08] MEDS ORDERED: NALOXONE HCL 0.4 MG/ML INJ IVP PRN (14:52)
[2017-06-08] MEDS ORDERED: ONDANSETRON 4 MG/2 ML VIAL IVP PRN ×2 (14:52→15:24)
[2017-06-08] MEDS ORDERED: ALBUTEROL 3 ML DEYVIAL IH PRN (14:52)
[2017-06-08] MEDS ORDERED: LR 500 ML IV PRN (14:52)
[2017-06-08] MEDS ORDERED: LIDOCAINE 2% 100 MG/5 ML SYR ONE (15:09)
[2017-06-08] MEDS ORDERED: SUGAMMADEX SODIUM 200 MG/2 ML VIAL IVP ONE (15:09)
[2017-06-08] MEDS ORDERED: KETOROLAC 30 MG/1 ML SDV ONE (15:09)
[2017-06-08] MEDS ORDERED: ROCURONIUM 50 MG/5 ML VIAL ONE (15:09)
[2017-06-08] MEDS ORDERED: ONDANSETRON 4 MG/2 ML VIAL ONE ×2 (15:09→15:56)
--- NOTE | 2017-06-08 15:22 | POSTOPPROG ---
Post Op Note Date of Operation: 06/08/17 Surgeon: Jason Contreras [employer] Engineer: Josephine Linn Anesthesiologist: Ge العلي Anesthesia: GET(General Endotracheal) Pre-op Diagnosis: chronic RLQ pain, umbilical hernia Post-op Diagnosis: incisional hernia, adhesions Procedure: exlaparoscopy, extensive adhesiolysis, incisional hernia repair (no mesh) Findings: 3 cm incisional defect. extensive adhesions. Inf/Abcess present in the surg proc area at time of surgery?: No EBL: Minimal Complications: none Specimen(s): hernia sac to pathology
[2017-06-08] MEDS ORDERED: HYDROmorphone HCL/NS 0.5 MG/ML SYR IVP PRN ×2 (15:24→18:42)
[2017-06-08] MEDS: fentaNYL 100 MCG/2 ML INJ IVP PRN ×2 (15:46→16:05)
[2017-06-08] MEDS ORDERED: PROMETHAZINE HCL 25 MG/ML INJ ONE (15:56)
[2017-06-08] MEDS: PROMETHAZINE HCL 25 MG/ML INJ IVP PRN ×2 (16:01→16:27)
[2017-06-08] MEDS ORDERED: HYDROmorphONE/DILAUDID 2 MG/ML INJ ONE (16:10)
[2017-06-08] MEDS: HYDROmorphONE/DILAUDID 2 MG/ML INJ IVP PRN ×3 (16:14→16:41)
[2017-06-08] MEDS: KETOROLAC 15 MG/1 ML SDV IVP SCH ×2 (18:25→23:08)
[2017-06-08] MEDS: NS W/ 20 KCl/L 1,000 ML IV SCH (18:26)
--- NOTE | 2017-06-08 18:45 | SOAPPROG ---
SOAP Progress Note Assessment/Plan: Assessment/Plan: 62 Y F s/p ex-laparoscopy with lysis of adhesions and incisional hernia repair, POD#0. Doing well. Pain controlled. Wounds intact. Tolerating clears. ADA diet ordered. Continue routine post op care. D/c to home tomorrow if pain controlled and doing well. 06/08/17 18:43 Objective: Vital Signs Temp Pulse Resp BP Pulse Ox 37.1 C 73 20 151/64 H 95 06/08/17 17:12 06/08/17 18:08 06/08/17 18:08 06/08/17 18:08 06/08/17 18:08 06/07/17 06/08/17 06/09/17 05:59 05:59 05:59 Intake Total 900 Output Total 15 Balance 885 ICD10 Worksheet Patient Problems: Problems Problem Status Onset Incisional hernia Acute Right lower quadrant pain Acute - ICD10 Problem Qualifiers (1) Right lower quadrant pain (2) Incisional hernia
[2017-06-08] MEDS: OXYCODONE/APAP 5/325 TAB PO PRN (23:09)
[2017-06-09] MEDS: NS W/ 20 KCl/L 1,000 ML IV SCH (02:32)
[2017-06-09] MEDS: OXYCODONE/APAP 5/325 TAB PO PRN ×3 (03:10→11:47)
[2017-06-09] MEDS: KETOROLAC 15 MG/1 ML SDV IVP SCH ×2 (05:24→11:50)
[2017-06-09] MEDS ORDERED: clonazePAM 1 MG TAB PO PRN (08:53)
[2017-06-09] MEDS ORDERED: Herbals/Supplements -Info Only PO SCH (09:00)
[2017-06-09] MEDS ORDERED: Linaclotide [Linzess] 145 MCG PO SCH (09:00)
[2017-06-09] MEDS ORDERED: LISINOPRIL 20 MG TAB PO SCH (09:00)
[2017-06-09] MEDS ORDERED: PANTOPRAZOLE SODIUM 40 MG TAB PO SCH (09:00)
[2017-06-09] MEDS ORDERED: LISINOPRIL/HCTZ 10/12.5 MG 1 EA TAB PO SCH (09:00)
[2017-06-09] MEDS ORDERED: FUROSEMIDE 20 MG TAB PO SCH (09:00)
[2017-06-09] MEDS ORDERED: DULoxetine 60 MG CAP PO SCH (09:00)
[2017-06-09] MEDS ORDERED: ESTRADIOL 1 MG TAB PO SCH (09:00)
[2017-06-09] MEDS ORDERED: ASPIRIN EC 81 MG TAB PO SCH (09:00)
--- NOTE | 2017-06-09 09:01 | SOAPPROG ---
SOAP Progress Note Assessment/Plan: Assessment/Plan: 62 Y F s/p ex-laparoscopy with lysis of adhesions and incisional hernia repair, POD#1. Mild bradycardia this am. Patient says this is normal for her. BP ok. H&H ok. Asymptomatic. Continue to monitor this am. Pain controlled. Tolerating diet. Wounds intact. Hypoxia. Uses O2 at home. At baseline. Continue routine post op care. D/c to home later today if HR ok. S: Reports history of drug dependence. Does not want to go home with narcotics. Discussed using ibuprofen and ultram. Also, she uses CBD oils. O: alert, nad, very talkative, smiling, sharing pictures of her family and pets ctab mildly bradycardic, regular rhythm, no M abd soft, obese. +BS. inc are cdi. +midline mago. 06/09/17 08:56 Objective: Vital Signs Temp Pulse Resp BP Pulse Ox 36.6 C 53 L 18 147/75 H 98 06/09/17 08:53 06/09/17 08:53 06/09/17 08:53 06/09/17 08:53 06/09/17 08:53 Laboratory Results 06/09/17 04:42 06/09/17 04:42 06/08/17 06/09/17 06/10/17 05:59 05:59 05:59 Intake Total 2165 Output Total 215 Balance 1950 ICD10 Worksheet Patient Problems: Problems Problem Status Onset Incisional hernia Acute Right lower quadrant pain Acute - ICD10 Problem Qualifiers (1) Right lower quadrant pain (2) Incisional hernia
[2017-06-09 11:35] VITALS: BP 111/57
--- NOTE | 2017-06-09 12:05 | ASMTCMCOM ---
CM Note CM Note Notes: Reviewed cahrt and discussed w/RN. RN felt pt was at baseline. She is ambulatory, uses wc for longer distances. Pt will dc home independantly. Date Signed: 06/09/2017 12:04 PM Electronically Signed By:Viry Saldana RN
[2017-06-09] MEDS ORDERED: Dulaglutide [Trulicity] 1.5 MG SQ SCH (12:30)
[2017-06-09] MEDS ORDERED: INSULIN ASPART NovoLOG 70/30 100 UNITS/ML SYR SC SCH (17:30)
[2017-06-09] MEDS ORDERED: DULoxetine 30 MG CAP PO SCH (21:00)
[2017-06-09] MEDS ORDERED: INSULIN ASPART PROTAMINE SC SCH (21:00)
[2017-06-09] MEDS ORDERED: NON-FORMULARY NEW DRUG (Simvastatin [Simvastatin] 10 MG) PO SCH (21:00)
[2017-06-09] MEDS ORDERED: PRAVASTATIN SODIUM 20 MG TAB PO SCH (21:00)
[2017-06-09] MEDS ORDERED: INSULIN ASPART SC SCH (21:00)
[2017-06-10] MEDS ORDERED: [UNRECOGNIZED DRUG - OTHER] SC SCH (07:30)
[2017-06-10] MEDS ORDERED: INSULIN ASPART NovoLOG 70/30 100 UNITS/ML SYR SC SCH (07:30)
[2017-06-10] MEDS ORDERED: ENOXAPARIN 40 MG/0.4 ML SYR SC SCH (09:00)
--- NOTE | 2017-06-12 18:07 | GOP ---
[f rep st] OPERATIVE REPORT DATE OF OPERATION: 06/08/2017 SURGEON: Jason Contreras MD PREOPERATIVE DIAGNOSIS: Right lower quadrant pain and incarcerated umbilical hernia. POSTOPERATIVE DIAGNOSIS: Right lower quadrant pain and incarcerated umbilical hernia, plus intraabdominal adhesions. PROCEDURE PERFORMED: Open incisional hernia repair and diagnostic laparoscopic adhesiolysis. FINDINGS: The patient was found to have a 3 cm incisional hernia defect in the periumbilical area with incarcerated DESCRIPTION OF PROCEDURE: ____ DICTATION ENDS HERE /[id number]/MODL MTDD
--- NOTE | 2017-06-12 18:17 | GOP ---
[f rep st] OPERATIVE REPORT DATE OF OPERATION: 06/08/2017 SURGEON: Jason Contreras MD ORACLE PROGRAMMER ANALYST: SANDOVAL Cantu. PREOPERATIVE DIAGNOSIS: Symptomatic incisional periumbilical hernia and right lower quadrant pain. POSTOPERATIVE DIAGNOSIS: 1. Symptomatic incisional periumbilical hernia and right lower quadrant pain. 2. Intraabdominal adhesions. PROCEDURE PERFORMED: 1. Open incisional ventral hernia. 2. Diagnostic laparoscopy with adhesiolysis. FINDINGS: Patient was found to have extensive adhesions in the right lower quadrant from previous multiple surgeries. She had a 2 cm incisional hernia defect. DESCRIPTION OF PROCEDURE: Patient was taken to the operating room where she received satisfactory general endotracheal anesthesia. She was placed in supine position and prepped and draped in the usual sterile fashion. A periumbilical incision was made through a previous old incision. Dissection was carried down the hernia sac. A short incision was made in the hernia sac and a 10/12 mm trocar was introduced. Pneumoperitoneum was established. Reasonable visualization was obtained. Two other trocars were placed through clear abdominal wall sites, and then a significant adhesiolysis was undertaken in the right lower quadrant, freeing up all the adhesions from the area marked preoperatively as her source of pain. No hernias seen. No masses seen. No inflammatory bowel changes. No other problems except for adhesions. These were cleared from the right lower quadrant; not all the abdominal adhesions were cleared. The trocar was then removed under direct vision. Trocar sites were closed with 4-0 Monocryl subcuticular sutures. The ventral hernia site was then closed with interrupted 0 Surgilon [id number] sutures in a 2- layer fashion. Subcu was closed with 2-0 Vicryl and the skin with a 4-0 Monocryl subcuticular stitch. All wounds were infiltrated with 0.5% Marcaine. She tolerated the procedure well. She was taken to the recovery room in good condition. There were no complications. Blood loss was less than 25 mL. /[id number]/MODL MTDD
--- NOTE | 2017-07-12 21:33 | GDS ---
[f rep st] DISCHARGE SUMMARY DISCHARGE DIAGNOSES: 1. Acute on chronic right lower quadrant abdominal pain. 2. Extensive intra-abdominal adhesions seen on surgery. 3. Insulin-dependent diabetes. 4. Symptomatic incisional periumbilical hernia. PROCEDURES: 1. Open incisional ventral hernia repair. 2. Diagnostic laparoscopy with extensive adhesiolysis. INTRAOPERATIVE FINDINGS: Patient was found to have extensive adhesions in the right lower quadrant f rom previous multiple surgeries. She also had a 2-cm incisional hernia defect. HOSPITAL COURSE: The patient is a 62-year-old female with multiple problems, who came to us complain ing tearfully of acute on chronic abdominal pain. All imaging over the past years had been largely n egative. She was found to have a ventral versus incisional versus periumbilical hernia on CT scan. She was brought to the operating room and underwent repair of the hernia, as well as exploratory lapa roscopy. She was found to have extensive adhesions from prior surgeries, and so these were taken carlos n. The procedure was uncomplicated, and she tolerated it well. The patient's postoperative course was relatively uneventful. Her pain was controlled, and her diet was advanced. Ultimately, she was discharged to home in stable condition at her baseline state with no additional needs. She was sent home with her very supportive daughter. All limitations were disc ussed and outpatient followup was planned. /[id number]/MODL
== END 2017-06-09 13:27 | disposition home or self-care (01) ==
LOC: F3E 11:17 → F1N 17:42
PROVIDERS: ADMIT Surgery; ATTEND Surgery
PROC: 0DNW4ZZ Release Peritoneum, Percutaneous Endoscopic Approach (ICD-10-PCS; principal; 2017-06-08 13:00)
PROC: 0WQF0ZZ Repair Abdominal Wall, Open Approach (ICD-10-PCS; principal; 2017-06-08 13:00)
DX: K43.2 Incisional hernia without obstruction or gangrene (principal); K66.0 Peritoneal adhesions (postprocedural) (postinfection); E11.9 Type 2 diabetes mellitus without complications; F41.9 Anxiety disorder, unspecified; Z98.1 Arthrodesis status; Z90.49 Acquired absence of other specified parts of digestive tract
CPT/HCPCS: 44180; 88302; J1100; J1170; J1885; J2001; J2250; J2405; J2550; J2704; J3010; J1815

== ENCOUNTER 2017-07-09 15:44 | Emergency (ER) | payer OTHER, MEDICAID ==
--- NOTE | 2017-07-09 15:59 | EDPHY ---
H & P Stated Complaint: back pain Time Seen by Provider: 07/09/17 15:58 HPI/ROS: CHIEF COMPLAINT: Back pain HISTORY OF PRESENT ILLNESS: This is a 62-year-old female who presents with progressively worsening low back pain. She has a history of lumbar fusion performed by Dr. Marielos Coker in 2016. She reportedly did relatively well up until a couple of months ago when she developed bilateral lower back pain. The pain now radiates into her buttocks and down the backs of her legs. She describes it as a cramping sensation. She has tried several different approaches to treat this pain, none of them successful. She has been using Aleve and lidocaine patches. She denies any bowel or bladder complaints. She does not have new numbness or new weakness. She is reportedly seeing an evaporator operator molasses at [facility] next month to find out if she might be allergic to the metal that was used in her fusion. Her primary care physician is aware of this worsening low back pain. The patient also reports nausea for which she has been taking Zofran 4 mg ODT twice daily, with minimal relief. She is not actively vomiting. She has not had fever. REVIEW OF SYSTEMS: A ten point review of systems was performed and is negative with the exception of the items mentioned in the HPI. Past medical history: 1. HTN 2. History of chronic pain 3. Headache 4. IDDM 5. Obesity Past surgical history: 1. Lumbar fusion 2. cholecystectomy 3. Hysterectomy 4. right carpal tunnel release Family history: Social history: General Appearance: Alert. Vital signs reviewed. Blood pressure 153/125 at triage. Eyes: Pupils equal and round, no conjunctival injection, no discharge. Anicteric. ENT, Mouth: Mucous membranes are moist, no oropharyngeal erythema or edema. Neck: No lymphadenopathy, supple. Respiratory: Lungs are clear to auscultation; no wheezes, rales, or rhonchi. Cardiovascular: Regular rate and rhythm; no murmur, rub, or gallop. Gastrointestinal: Abdomen is obese, soft and nontender, no masses or organomegaly, bowel sounds normal. Skin: Warm and dry, no rashes on exposed skin, normal color. Back: Tender to palpation over her low back at the level of the waist, bilaterally. No palpable muscle spasm. Well-healed midline surgical incision without erythema or tenderness. No CVAT. Extremities: No lower extremity edema, no calf tenderness or swelling. Neurological: Alert and oriented. Moving all four extremities easily and equally. She has 5/5 strength in both lower extremities with testing of major motor groups. Sensation is intact to light touch over both lower extremities. No clonus. Psychiatric: Normal affect. - Personal History Current Tetanus/Diphtheria Vaccine: Yes Current Tetanus Diphtheria and Acellular Pertussis (TDAP): Yes Tetanus Vaccine Date: <10 years - Medical/Surgical History Hx Asthma: No Hx Chronic Respiratory Disease: No Hx Diabetes: Yes Hx Cardiac Disease: No Hx Renal Disease: No Hx Cirrhosis: No Hx Alcoholism: No Hx HIV/AIDS: No Hx Splenectomy or Spleen Trauma: No Other PMH: right wrist carpal tunnel surgery,. back surgery. gall bladder surg. hysterectomy. MEd hx-anemia,and insulin dependant diabetes,chronic pain , ROLDAN, HTN - Social History Smoking Status: Former smoker Constitutional: Initial Vital Signs Temperature (C) 36.8 C 07/09/17 15:52 Heart Rate 97 07/09/17 15:52 Respiratory Rate 16 07/09/17 15:52 Blood Pressure 153/125 H 07/09/17 15:52 O2 Sat (%) 95 07/09/17 15:52 O2 Delivery Mode Room Air Allergies/Adverse Reactions: cephalexin monohydrate [From Keflex] Allergy (Intermediate, Verified 07/09/17 15 :49) Rash meperidine HCl [From Demerol] Allergy (Intermediate, Verified 07/09/17 15:49) Vomiting Penicillins Allergy (Intermediate, Verified 07/09/17 15:49) Rash Sulfa (Sulfonamide Antibiotics) Allergy (Intermediate, Verified 07/09/17 15:49) Hives gabapentin Allergy (Verified 07/09/17 15:49) Rash Home Medications: Medication Instructions Recorded DULoxetine [Cymbalta 60 MG (*)] 60 mg PO DAILY 06/02/17 Dulaglutide [Trulicity] 1.5 mg SQ WE@1230 06/02/17 Estradiol [Estradiol 1 MG (*)] 1 mg PO DAILY 06/02/17 Furosemide [Lasix 20 MG (*)] 20 mg PO DAILY 06/02/17 Linaclotide [Linzess] 145 mcg PO DAILY 06/02/17 Lisinopril [Zestril 20 mg (*)] 20 mg PO DAILY 06/02/17 Lisinopril/Hydrochlorothiazide 1 each PO DAILY 06/02/17 [Lisinopril-Hctz 10-12.5 mg Tab] Pantoprazole Sodium [Protonix 40mg 40 mg PO DAILY 06/02/17 (*)] SIMVASTATIN 10 mg PO HS 06/02/17 clonazePAM [klonoPIN (*)] 2 mg PO HS PRN 06/02/17 rOPINIRole HCL [Requip 1mg (*)] 1 mg PO DAILY@19 PRN 06/02/17 Aspirin EC [Aspirin EC 81 mg (*)] 81 mg PO DAILY 06/08/17 DULoxetine [Cymbalta 30 MG (*)] 30 mg PO HS 06/08/17 Herbals/Supplements -Info Only 1 ea PO DAILY 06/08/17 Insulin Aspart Novolog 70/30 40 - 45 unit SC DAILYAC@1730 06/08/17 [NovoLOG MIX 70/30 VIAL] Insulin Aspart Novolog 70/30 80 unit SC DAILYAC 06/08/17 [NovoLOG MIX 70/30 VIAL] rOPINIRole HCL [Requip 1mg (*)] 2 mg PO DAILY@20 PRN 06/08/17 Ibuprofen [Motrin (*)] 600 mg PO Q6H #50 tab 06/09/17 Medical Decision Making ED Course/Re-evaluation: Patient with low back pain, acute on chronic. She was given Zofran 4 mg IV, Toradol 15 mg IV, and Dilaudid 1 mg IV. She has had no trauma and I do not feel that imaging studies are needed today. She was re-evaluated at 5:00 p.m. At which point she is feeling better. It was my hope that, if the acute pain he could be decreased, she would do better with her home treatments. She has agreed to continue with the lidocaine patches and Aleve. She has Zofran at home but has been taking it twice daily. I have informed her that she can take this every 4 hr if needed for nausea. She is not requesting and has not been given a prescription for opiates. She is aware that her blood pressure is high in the ED and will have this checked by her PCP. She has a history of hypertension. I have recommended follow up with a back specialist. I will refer her to [facility]. She will also follow up with her primary care physician. Differential Diagnosis: Back pain including but not limited to muscular pain, herniated disc, spine fracture, intra-abdominal causes and urinary tract infection. - Data Points Medications Given: Discontinued Medications Hydromorphone HCl (Dilaudid) 1 mg IVP EDNOW ONE Stop: 07/09/17 16:26 Last Admin: 07/09/17 16:42 Dose: 1 mg Ketorolac Tromethamine (Toradol) 15 mg IVP EDNOW ONE Stop: 07/09/17 16:26 Last Admin: 07/09/17 16:43 Dose: 15 mg Ondansetron HCl (Zofran) 4 mg IVP EDNOW ONE Stop: 07/09/17 16:26 Last Admin: 07/09/17 16:42 Dose: 4 mg Departure - Departure Disposition: Home, Routine, Self-Care Clinical Impression: Low back pain Qualifiers: Chronicity: acute Back pain laterality: bilateral Sciatica presence: with sciatica Sciatica laterality: bilateral sciatica Qualified Code(s): M54.42 - Lumbago with sciatica, left side; M54.41 - Lumbago with sciatica, right side; M54.41 - Lumbago with sciatica, right side Condition: Good Instructions: Back Pain (ED) Additional Instructions: I recommend that you continue with the lidocaine patches and the Aleve (use it only according to the instructions on the packaging). You can take the Zofran for nausea and vomiting every 4 hr. I am referring you to [facility]. This is a group of specialists that deal with back pain. They are not surgeons but will have other approaches to help you with your ongoing back pain. If you develop new difficulty controlling your bowels or bladder, new weakness, or new numbness--you should be re-evaluated. Referrals: [facility] [Outside] - As per Instructions
[2017-07-09] MEDS ORDERED: KETOROLAC 30 MG/1 ML SDV IVP ONE (16:25)
[2017-07-09] MEDS ORDERED: ONDANSETRON 4 MG/2 ML VIAL IVP ONE (16:25)
[2017-07-09] MEDS ORDERED: HYDROmorphONE/DILAUDID 2 MG/ML INJ IVP ONE (16:25)
[2017-07-09 17:18] VITALS: BP 123/70
== END 2017-07-09 17:20 | disposition home or self-care (01) ==
DX: M54.41 Lumbago with sciatica, right side (principal); M54.42 Lumbago with sciatica, left side; I10 Essential (primary) hypertension; E11.9 Type 2 diabetes mellitus without complications; Z79.4 Long term (current) use of insulin; Z79.82 Long term (current) use of aspirin; Z87.891 Personal history of nicotine dependence
CPT/HCPCS: 96374; 96375; 99284; J1170; J1885; J2405

== ENCOUNTER 2017-07-15 16:48 | Emergency (ER) | payer OTHER, MEDICAID ==
[2017-07-15] MEDS ORDERED: KETOROLAC 15 MG/1 ML SDV IVP ONE ×2 (17:45→18:17)
[2017-07-15] MEDS ORDERED: METOCLOPRAMIDE 10 MG/2 ML VIAL IVP ONE (17:46)
[2017-07-15] MEDS ORDERED: ACETAMINOPHEN 500 MG TAB PO ONE (17:47)
[2017-07-15] MEDS ORDERED: HYDROmorphONE/DILAUDID 2 MG/ML INJ IVP ONE (17:48)
[2017-07-15 18:05] LABS: PLATELET COUNT 283 10^3/uL (150-400)
[2017-07-15] MEDS ORDERED: NS 1,000 ML IV ONE (18:20)
--- NOTE | 2017-07-15 18:29 | EDPHY ---
H & P Time Seen by Provider: 07/15/17 17:27 HPI/ROS: This patient presents with acute on chronic low back pain bilateral lumbar region radiating down both legs posteriorly toward the feet. Patient was recently seen for this same presentation on 07/09/2017 at [facility] emergency department with improvement from IV Toradol and Dilaudid and plan to continue her Aleve and lidocaine patches. She reports having ongoing unrelieved pain from the Aleve and lidocaine and admits that she stop using those medications due to a perceived lack of efficacy. She does continue Zofran for her chronic nausea typically having 4 mg ODT twice daily. Currently she reports that her lumbar pain is severe intensity. It worsens when she lies flat and when she sits up for too long. The nature of the pain is achy and similar to prior back pain. She reports associated neck pain 5/10 intensity that she sometimes gets associated with her low back pain finally, reports a bandlike distribution headache 9/10 intensity similar to prior headaches. Patient has a history of lumbar fusion surgery in his currently awaiting an appointment and [facility] for further evaluation to consider potential metal allergy at her fusion site. 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 She is accompanied by her daughter who brought her here by private vehicle for further evaluation ROS: Constitutional: No fevers or chills. HEENT: No complaints pulmonary: No cough shortness of breath. Cardiovascular: No pulsatile abdominal pain or lightheadedness. No lower extremity swelling. GI: No nausea vomiting or abdominal pain : No dysuria, frequency urgency. Integumentary: No skin rash Neuro: No numbness tingling or focal weakness. She reports 1 episode of fecal incontinence that was mild last night that she attributes to loose stools recently. She reports that she has had 3 or 4 episodes of loose stools a day. She feels this is different than the fecal incontinence she had prior to her back surgery. Complete review of symptoms otherwise negative. Past Medical/Surgical History: Hypertension, morbid obesity, insulin-dependent diabetes, history of chronic pain, headaches up with surgical history of lumbar fusion, cholecystectomy, hysterectomy, right carpal tunnel release. Social History: Rare alcohol. No drug use. She does report using CBD will at times for her back pain with limited improvement Smoking Status: Former smoker Physical Exam: General Appearance: Pleasant morbidly obese 62-year-old female Alert, no distress. Eyes: Pupils equal and round no pallor or injection. ENT, Mouth: Mucous membranes moist. Oropharynx is clear. Ears: Clear bilaterally. She has no sinus tenderness to percussion. She has mild cranial tenderness the partially reproduces her headache in the parietal region bilaterally. Respiratory: There are no retractions, lungs are clear to auscultation. Cardiovascular: Regular rate and rhythm. No murmur gallop rub. No pulsatile belly masses. She maintains good perfusion bilateral lower extremities. Gastrointestinal: Abdomen is soft and nontender, no masses, bowel sounds normal. Neurological: GCS 15. Cranial nerves 2-12 grossly intact. She maintains 5/5 strength in great toe dorsiflexion plantar flexion bilaterally. She has weak but symmetric patellar DTRs bilaterally. No light touch sensory deficits in lower extremities. No saddle anesthesia. Skin: Warm and dry, no rashes. Back: No midline tenderness. Clean dry intact midline surgical scar. She has bilateral lumbar paraspinous muscular tenderness the partially reproduces her symptoms. Straight leg raise is negative on the right borderline positive at the left at 20 degrees. She has limited range of motion due to back pain. Musculoskeletal: Neck is supple nontender. Extremities are symmetrical, full range of motion. Psychiatric: Mood and affect are normal DIFFERENTIAL DIAGNOSIS: After history and physical exam differential diagnosis was considered for acute on chronic low back pain, UTI, tension headache, migraine headache, osteomyelitis, allergy to surgical implant. Constitutional: Initial Vital Signs Temperature (C) 36.8 C 07/15/17 16:57 Heart Rate 86 07/15/17 16:57 Respiratory Rate 16 07/15/17 16:57 Blood Pressure 135/79 H 07/15/17 16:57 O2 Sat (%) 95 07/15/17 16:57 O2 Delivery Mode Room Air Allergies/Adverse Reactions: cephalexin monohydrate [From Keflex] Allergy (Intermediate, Verified 07/15/17 17 :04) Rash meperidine HCl [From Demerol] Allergy (Intermediate, Verified 07/15/17 17:04) Vomiting Penicillins Allergy (Intermediate, Verified 07/15/17 17:04) Rash Sulfa (Sulfonamide Antibiotics) Allergy (Intermediate, Verified 07/15/17 17:04) Hives gabapentin Allergy (Verified 07/15/17 17:04) Rash Home Medications: Medication Instructions Recorded DULoxetine [Cymbalta 60 MG (*)] 60 mg PO DAILY 06/02/17 Dulaglutide [Trulicity] 1.5 mg SQ WE@1230 06/02/17 Estradiol [Estradiol 1 MG (*)] 1 mg PO DAILY 06/02/17 Furosemide [Lasix 20 MG (*)] 20 mg PO DAILY 06/02/17 Linaclotide [Linzess] 145 mcg PO DAILY 06/02/17 Lisinopril [Zestril 20 mg (*)] 20 mg PO DAILY 06/02/17 Lisinopril/Hydrochlorothiazide 1 each PO DAILY 06/02/17 [Lisinopril-Hctz 10-12.5 mg Tab] Pantoprazole Sodium [Protonix 40mg 40 mg PO DAILY 06/02/17 (*)] SIMVASTATIN 10 mg PO HS 06/02/17 clonazePAM [klonoPIN (*)] 2 mg PO HS PRN 06/02/17 rOPINIRole HCL [Requip 1mg (*)] 1 mg PO DAILY@19 PRN 06/02/17 Aspirin EC [Aspirin EC 81 mg (*)] 81 mg PO DAILY 06/08/17 DULoxetine [Cymbalta 30 MG (*)] 30 mg PO HS 06/08/17 Herbals/Supplements -Info Only 1 ea PO DAILY 06/08/17 Insulin Aspart Novolog 70/30 40 - 45 unit SC DAILYAC@1730 06/08/17 [NovoLOG MIX 70/30 VIAL] Insulin Aspart Novolog 70/30 80 unit SC DAILYAC 06/08/17 [NovoLOG MIX 70/30 VIAL] rOPINIRole HCL [Requip 1mg (*)] 2 mg PO DAILY@20 PRN 06/08/17 Methocarbamol [Robaxin 750 mg (*)] 750 - 1,500 mg PO QID PRN #30 tab 07/15/17 Nystatin 07/15/17 traMADol [Ultram 50 mg (*)] 50 - 100 mg PO Q4 PRN #20 tab 07/15/17 MDM/Departure - MDM Medications Given: Discontinued Medications Acetaminophen (Tylenol) 1,000 mg PO EDNOW ONE Stop: 07/15/17 17:48 Last Admin: 07/15/17 18:08 Dose: 1,000 mg Diphenhydramine HCl (Benadryl Injection) 50 mg IVP EDNOW ONE Stop: 07/15/17 17:47 Last Admin: 07/15/17 18:20 Dose: 50 mg Hydromorphone HCl (Dilaudid) 1 mg IVP EDNOW ONE Stop: 07/15/17 17:49 Last Admin: 07/15/17 18:25 Dose: 1 mg Sodium Chloride (Ns) 1,000 mls @ 0 mls/hr IV ONCE ONE; Wide Open PRN Reason: Protocol Stop: 07/15/17 18:21 Last Admin: 07/15/17 18:20 Dose: 1,000 mls Ketorolac Tromethamine (Toradol) 15 mg IVP EDNOW ONE Stop: 07/15/17 17:46 Last Admin: 07/15/17 18:20 Dose: 15 mg Ketorolac Tromethamine (Toradol) 15 mg IVP EDNOW ONE Stop: 07/15/17 18:18 Last Admin: 07/15/17 18:41 Dose: 15 mg Metoclopramide HCl (Reglan Injection) 5 mg IVP EDNOW ONE Stop: 07/15/17 17:47 Last Admin: 07/15/17 18:22 Dose: 5 mg ED Course/Re-evaluation: IV Toradol, Reglan, Benadryl, 1 mg of Dilaudid, Tylenol p.o. With relief of back pain down to moderate discomfort and near complete relief of headache. Labs: CBC is normal, basic metabolic panel normal, urinalysis with contamination but no evidence of UTI Discussion: Patient with acute on chronic low back pain without evidence of cauda equina syndrome or other red flag findings improved with treatment. Given normal CBC, lack of fever midline tenderness, I doubt surgical site infection, osteomyelitis. Will discharge her with a plan of methocarbamol, continuing NSAIDs, Tylenol and tramadol if needed for pain that prevents sleep. I encouraged her to follow up with her back specialist as well as her plan follow up at [facility]. - Depart Disposition: Home, Routine, Self-Care Clinical Impression: Low back pain Qualifiers: Chronicity: acute Back pain laterality: bilateral Sciatica presence: with sciatica Sciatica laterality: bilateral sciatica Qualified Code(s): M54.42 - Lumbago with sciatica, left side Acute headache Qualifiers: Headache type: unspecified Intractability: not intractable Qualified Code(s): R51 - Headache Condition: Good Instructions: Acute Headache (ED), Acute Low Back Pain (ED) Additional Instructions: Diagnosis: 1. Low back pain 2. Acute headache Plan: Home to rest Try to lose weight as this will help with her back pain Aleve or ibuprofen for discomfort Methocarbamol muscle relaxant and tramadol in addition if needed for pain control. No driving, alcohol work on tramadol Follow up with primary care physician for any ongoing symptoms Return to the emergency department for any significant worsening despite the treatment plan. Also, follow up with her back specialist for recheck Prescriptions: Methocarbamol [Robaxin 750 mg (*)] 750 - 1,500 mg PO QID PRN #30 tab PRN Reason: Muscle Spasms traMADol [Ultram 50 mg (*)] 50 - 100 mg PO Q4 PRN #20 tab PRN Reason: breakthrough pain Referrals: ADAMA BROWN DO [Other] - As per Instructions
[2017-07-15 19:57] VITALS: BP 121/63
== END 2017-07-15 20:07 | disposition home or self-care (01) ==
LOC: CED 16:48
DX: M54.42 Lumbago with sciatica, left side (principal); R51 Headache; I10 Essential (primary) hypertension; E11.9 Type 2 diabetes mellitus without complications; E86.9 Volume depletion, unspecified; Z79.4 Long term (current) use of insulin; Z87.891 Personal history of nicotine dependence; Z79.82 Long term (current) use of aspirin
CPT/HCPCS: 96361; 96374; 96375; 99284; J1170; J1200; J1885; J2765; 80048-PO; 81003-PO; 81015-PO; 85025-PO

== ENCOUNTER 2017-07-19 14:46 | Emergency (ER) | payer OTHER, MEDICAID ==
[2017-07-19] MEDS ORDERED: NS 1,000 ML IV ONE (15:14)
--- NOTE | 2017-07-19 15:14 | EDPHY ---
H & P Stated Complaint: RLQ pain, recent surgery, increased pain. Time Seen by Provider: 07/19/17 14:59 HPI/ROS: CHIEF COMPLAINT: Right lower quadrant pain HISTORY OF PRESENT ILLNESS: A 62-year-old female with diabetes and recurrent right lower quadrant pain presents with a 5 day history right lower quadrant pain. In April 2017 she underwent ventral hernia repair and lysis of RLQ adhesions by Dr. Contreras. The right lower quadrant pain resolved until 5 days ago. She now has recurrent pain, similar to prior episodes. The pain is moderate to severe and constant. Associated with nausea and loose stools. No fever. She was seen by Dr. Contreras just prior to arrival and he sent her to the emergency department for evaluation. REVIEW OF SYSTEMS: complete 10 point ROS negative except at noted in the HPI - Personal History Current Tetanus Diphtheria and Acellular Pertussis (TDAP): Yes Tetanus Vaccine Date: <10 years - Medical/Surgical History Hx Asthma: No Hx Chronic Respiratory Disease: No Hx Diabetes: Yes Hx Cardiac Disease: No Hx Renal Disease: No Hx Cirrhosis: No Hx Alcoholism: No Hx HIV/AIDS: No Hx Splenectomy or Spleen Trauma: No Other PMH: right wrist carpal tunnel surgery,. back surgery. gall bladder surg. hysterectomy. MEd hx-anemia,and insulin dependant diabetes,chronic pain , ROLDAN, HTN - Social History Smoking Status: Former smoker - Physical Exam Exam: General Appearance: Alert, appears in pain, obese Eyes: Pupils equal and round, no conjunctival pallor or injection ENT, Mouth: Mucous membranes moist Neck: Normal inspection Respiratory: Lungs are clear to auscultation Cardiovascular: Regular rate and rhythm Gastrointestinal: Abdomen is soft, right lower quadrant tenderness, no peritoneal signs Neurological: A&O, nonfocal, normal gait Skin: Warm and dry, no rash Extremities: Normal inspection Psychiatric: Mood and affect normal Constitutional: Initial Vital Signs Temperature (C) 36.9 C 07/19/17 14:49 Heart Rate 96 07/19/17 14:49 Respiratory Rate 18 07/19/17 14:49 Blood Pressure 107/87 H 07/19/17 14:49 O2 Sat (%) 94 07/19/17 14:49 O2 Delivery Mode Room Air O2 (L/minute) 2 Allergies/Adverse Reactions: cephalexin monohydrate [From Keflex] Allergy (Intermediate, Verified 07/15/17 17 :04) Rash meperidine HCl [From Demerol] Allergy (Intermediate, Verified 07/15/17 17:04) Vomiting Penicillins Allergy (Intermediate, Verified 07/15/17 17:04) Rash Sulfa (Sulfonamide Antibiotics) Allergy (Intermediate, Verified 07/15/17 17:04) Hives gabapentin Allergy (Verified 07/15/17 17:04) Rash Home Medications: Medication Instructions Recorded DULoxetine [Cymbalta 60 MG (*)] 60 mg PO DAILY 06/02/17 Dulaglutide [Trulicity] 1.5 mg SQ WE@1230 06/02/17 Estradiol [Estradiol 1 MG (*)] 1 mg PO DAILY 06/02/17 Furosemide [Lasix 20 MG (*)] 20 mg PO DAILY 06/02/17 Linaclotide [Linzess] 145 mcg PO DAILY 06/02/17 Lisinopril [Zestril 20 mg (*)] 20 mg PO DAILY 06/02/17 Lisinopril/Hydrochlorothiazide 1 each PO DAILY 06/02/17 [Lisinopril-Hctz 10-12.5 mg Tab] Pantoprazole Sodium [Protonix 40mg 40 mg PO DAILY 06/02/17 (*)] SIMVASTATIN 10 mg PO HS 06/02/17 clonazePAM [klonoPIN (*)] 2 mg PO HS PRN 06/02/17 rOPINIRole HCL [Requip 1mg (*)] 1 mg PO DAILY@19 PRN 06/02/17 Aspirin EC [Aspirin EC 81 mg (*)] 81 mg PO DAILY 06/08/17 DULoxetine [Cymbalta 30 MG (*)] 30 mg PO HS 06/08/17 Herbals/Supplements -Info Only 1 ea PO DAILY 06/08/17 Insulin Aspart Novolog 70/30 40 - 45 unit SC DAILYAC@1730 06/08/17 [NovoLOG MIX 70/30 VIAL] Insulin Aspart Novolog 70/30 80 unit SC DAILYAC 06/08/17 [NovoLOG MIX 70/30 VIAL] rOPINIRole HCL [Requip 1mg (*)] 2 mg PO DAILY@20 PRN 06/08/17 Methocarbamol [Robaxin 750 mg (*)] 750 - 1,500 mg PO QID PRN #30 tab 07/15/17 Nystatin 07/15/17 traMADol [Ultram 50 mg (*)] 50 - 100 mg PO Q4 PRN #20 tab 07/15/17 Medical Decision Making - Diagnostics Imaging Results: CT scan of the abdomen pelvis read by the radiologist reveals no acute disease. ED Course/Re-evaluation: This patient presents with recurrent right lower quadrant pain, consistent with adhesions. She declines pain medication and CT scan. Dr. Marcelina Contreras was consulted. Suggests pain control, CT abd/pelvis. 1530: d/w pt, now requests IV Toradol and Dilaudid. Agrees to CT scan of the abdomen and pelvis. Feels much better after IV Toradol and Dilaudid. 18 30: CT results discussed with the patient. The right lower quadrant pain has returned. Abdominal exam remains benign. Admission versus discharge home discussed with the patient. She declines admission and would like to go home. Dilaudid 1 mg IV given prior to discharge home. She has a follow-up appointment with her primary care physician tomorrow. At her request, I also gave her a prepack of Percocet. Differential Diagnosis: Differential diagnosis includes though it is not limited to appendicitis, cholecystitis, diverticulitis, pyelonephritis, bowel perforation, small bowel obstruction. - Data Points Laboratory Results: Laboratory Results 07/19/17 16:00 07/19/17 15:15 Medications Given: Discontinued Medications Hydromorphone HCl (Dilaudid) 1 mg IVP EDNOW ONE Stop: 07/19/17 15:26 Last Admin: 07/19/17 15:40 Dose: 1 mg Hydromorphone HCl (Dilaudid) 1 mg IVP EDNOW ONE Stop: 07/19/17 18:35 Last Admin: 07/19/17 18:35 Dose: 1 mg Sodium Chloride (Ns) 1,000 mls @ 0 mls/hr IV EDNOW ONE; Wide Open PRN Reason: Protocol Stop: 07/19/17 15:15 Last Admin: 07/19/17 15:40 Dose: 1,000 mls Ketorolac Tromethamine (Toradol) 15 mg IVP EDNOW ONE Stop: 07/19/17 15:21 Last Admin: 07/19/17 15:40 Dose: 15 mg Ondansetron HCl (Zofran) 4 mg IVP EDNOW ONE Stop: 07/19/17 15:26 Last Admin: 07/19/17 15:40 Dose: 4 mg Oxycodone/Acetaminophen (Percocet 5/325mg Prepack#4) 1 btl TAKEJUNEE EDNOW ONE Stop: 07/19/17 19:24 Last Admin: 07/19/17 19:40 Dose: 1 btl Departure - Departure Disposition: Home, Routine, Self-Care Clinical Impression: Abdominal pain Qualifiers: Abdominal location: right lower quadrant Qualified Code(s): R10.31 - Right lower quadrant pain Condition: Good Instructions: Acute Abdominal Pain (ED) Additional Instructions: Keep your appointment tomorrow. Percocet 1-2 tablets every 6 hours as needed for pain. Return for worsening symptoms or any concerns. Referrals: ADAMA BROWN MD [Other] - 1-2 days without fail
[2017-07-19] MEDS ORDERED: KETOROLAC 15 MG/1 ML SDV IVP ONE (15:20)
[2017-07-19] MEDS ORDERED: HYDROmorphONE/DILAUDID 2 MG/ML INJ IVP ONE ×2 (15:25→18:34)
[2017-07-19] MEDS ORDERED: ONDANSETRON 4 MG/2 ML VIAL IVP ONE (15:25)
[2017-07-19] MEDS ORDERED: IOPAMIDOL (ISOVUE-300) 100 ML BTL ONE ×2 (15:31→15:32)
[2017-07-19 16:12] LABS: PLATELET COUNT 254 10^3/uL (150-400)
[2017-07-19] MEDS ORDERED: HYDROmorphONE/DILAUDID 2 MG/ML INJ ONE (18:32)
[2017-07-19] MEDS ORDERED: OXYCODONE/APAP 5/325MG PREPACK#4 BTL TAKEHOME ONE (19:23)
[2017-07-19 19:47] VITALS: BP 92/69
== END 2017-07-19 19:45 | disposition home or self-care (01) ==
DX: R10.31 Right lower quadrant pain (principal); I10 Essential (primary) hypertension; E11.9 Type 2 diabetes mellitus without complications; E86.9 Volume depletion, unspecified; Z79.4 Long term (current) use of insulin; Z79.82 Long term (current) use of aspirin; Z87.891 Personal history of nicotine dependence; Z90.710 Acquired absence of both cervix and uterus
CPT/HCPCS: 74177; 96361; 96374; 96375; 96376; 99285; J1170; J1885; J2405; Q9967; 82947-QW

== ENCOUNTER 2017-08-06 16:45 | Emergency (ER) | payer OTHER, MEDICAID ==
--- NOTE | 2017-08-06 17:09 | EDPHY ---
H & P Time Seen by Provider: 08/06/17 17:07 HPI/ROS: CHIEF COMPLAINT: Back pain HISTORY OF PRESENT ILLNESS: Patient had previous visit on 07/09/2017 at [facility] and then on 07/15/2017 at [facility] for back pain. Presents tonight with acute exacerbation of her chronic low back pain which is bilateral, since seen previously for this presentation as noted above and then which she tells me was at a [place] at the end of last week. She takes Aleve at home and used to use lidocaine patches but stopped using them. She tells me she does not take controlled substance or opioid prescriptions at home because she had a problem with addiction at the time her daughter was born. Today she tells me her back pain is severe. It is worsened by moving and changing positions. It is identical to previous back pain. Not associated with weakness or numbness in extremities or incontinence. She is apparently undergoing evaluation [facility] because she thinks she has a allergy to the metal implant her fusion site. No recent injury or trauma. No fevers or chills. REVIEW OF SYSTEMS: Eye: no change in vision ENT: no sore throat Cardiac: no chest pain or syncope Pulmonary: no cough or SOB Abdomen: no vomiting, diarrhea, abdominal pain Musculoskeletal: HPI Skin: no rash Neuro: no headache Constitutional: no fever : No incontinence A comprehensive 10 point review of systems is otherwise negative aside from elements mentioned in the history of present illness. PAST MEDICAL HISTORY: Previous [facility] visit dated 07/15/2017 personally reviewed. Includes hypertension, obesity, diabetes, chronic pain, headaches. Lumbar fusion, cholecystectomy, hysterectomy, right carpal tunnel. Social history: No tobacco, occasional alcohol General Appearance: Alert and conversant, cooperative. Eyes: No scleral icterus. ENT, Mouth: Normal mucous membranes. Respiratory: Normal respiratory effort, breath sounds equal, lungs are clear to auscultation. Cardiovascular: Regular rate and rhythm. Gastrointestinal: Abdomen is soft and non tender. Well-healed midline incision. Neurological: Alert, face symmetric, normal motor and sensory in extremities. No clonus, patellar reflexes 1+ symmetric, straight leg raising negative bilaterally. Ambulatory. Skin: Warm and dry, no rashes. Musculoskeletal: Paraspinal muscle tenderness in the lower lumbar region, no midline spine tenderness or step-off. Psychiatric: Not agitated. Emergency Department course/MDM: 1730: PDMP negative. Discussed with Jenna for her PCP at [facility]. Patient does not present with red flags to suggest she has epidural abscess or [employer] infection, cauda equina, or acute spinal cord or canal compromise. Does not have red flags to suggest she has vascular problem or acute neurosurgical problem. Dilaudid 1 mg IV and Zofran 4 mg IV. 1843: Feels better, wants 1 more dose and and then to be discharged, Dilaudid 0.5 mg IV. Smoking Status: Former smoker Constitutional: Initial Vital Signs Temperature (C) 36.8 C 08/06/17 17:48 Heart Rate 82 08/06/17 17:48 Respiratory Rate 16 08/06/17 17:48 Blood Pressure 170/89 H 08/06/17 17:48 O2 Sat (%) 92 08/06/17 17:48 O2 Delivery Mode Room Air Allergies/Adverse Reactions: cephalexin monohydrate [From Keflex] Allergy (Intermediate, Verified 08/06/17 17 :09) Rash meperidine HCl [From Demerol] Allergy (Intermediate, Verified 08/06/17 17:09) Vomiting Penicillins Allergy (Intermediate, Verified 08/06/17 17:09) Rash Sulfa (Sulfonamide Antibiotics) Allergy (Intermediate, Verified 08/06/17 17:09) Hives gabapentin Allergy (Verified 08/06/17 17:09) Rash Home Medications: Medication Instructions Recorded DULoxetine [Cymbalta 60 MG (*)] 60 mg PO DAILY 06/02/17 Dulaglutide [Trulicity] 1.5 mg SQ WE@1230 06/02/17 Estradiol [Estradiol 1 MG (*)] 1 mg PO DAILY 06/02/17 Furosemide [Lasix 20 MG (*)] 20 mg PO DAILY 06/02/17 Linaclotide [Linzess] 145 mcg PO DAILY 06/02/17 Lisinopril [Zestril 20 mg (*)] 20 mg PO DAILY 06/02/17 Lisinopril/Hydrochlorothiazide 1 each PO DAILY 06/02/17 [Lisinopril-Hctz 10-12.5 mg Tab] Pantoprazole Sodium [Protonix 40mg 40 mg PO DAILY 06/02/17 (*)] SIMVASTATIN 10 mg PO HS 06/02/17 rOPINIRole HCL [Requip 1mg (*)] 1 mg PO DAILY@19 PRN 06/02/17 Aspirin EC [Aspirin EC 81 mg (*)] 81 mg PO DAILY 06/08/17 DULoxetine [Cymbalta 30 MG (*)] 30 mg PO HS 06/08/17 Insulin Aspart Novolog 70/30 40 - 45 unit SC DAILYAC@1730 06/08/17 [NovoLOG MIX 70/30 VIAL] Insulin Aspart Novolog 70/30 80 unit SC DAILYAC 06/08/17 [NovoLOG MIX 70/30 VIAL] rOPINIRole HCL [Requip 1mg (*)] 2 mg PO DAILY@20 PRN 06/08/17 traMADol [Ultram 50 mg (*)] 50 - 100 mg PO Q4 PRN #20 tab 07/15/17 Medical Decision Making Differential Diagnosis: Differential for back pain considered including but not limited to cauda equina , vascular problem, aortic aneurysm, pyelonephritis, fracture. - Data Points Laboratory Results: Laboratory Results 08/06/17 17:25 08/06/17 17:25 Sodium 137 mEq/L mEq/L (135-145) Potassium 4.0 mEq/L mEq/L (3.3-5.0) Chloride 98 mEq/L mEq/L (97-110) Carbon Dioxide 28 mEq/l mEq/l (22-31) Anion Gap 11 mEq/L mEq/L (8-16) BUN 10 mg/dL mg/dL (7-23) Creatinine 0.6 mg/dL mg/dL (0.6-1.0) Estimated GFR > 60 Glucose 100 mg/dL mg/dL (70-100) Calcium 9.5 mg/dL mg/dL (8.5-10.4) Medications Given: Discontinued Medications Hydromorphone HCl (Dilaudid) 1 mg IVP EDNOW ONE Stop: 08/06/17 17:21 Last Admin: 08/06/17 17:33 Dose: 1 mg Ketorolac Tromethamine (Toradol) 15 mg IVP EDNOW ONE Stop: 08/06/17 18:05 Last Admin: 08/06/17 18:31 Dose: 15 mg Ondansetron HCl (Zofran) 4 mg IVP EDNOW ONE Stop: 08/06/17 17:21 Last Admin: 08/06/17 17:31 Dose: 4 mg Departure - Departure Disposition: Home, Routine, Self-Care Clinical Impression: Low back pain Qualifiers: Chronicity: unspecified Back pain laterality: bilateral Sciatica presence: unspecified whether sciatica present Qualified Code(s): M54.5 - Low back pain Condition: Good Instructions: Chronic Back Pain (ED) Referrals: NONE *PRIMARY CARE P,. [Primary Care Provider] - 08/10/17 (Dr. Tellez your PCP)
[2017-08-06] MEDS ORDERED: HYDROmorphONE/DILAUDID 2 MG/ML INJ IVP ONE ×2 (17:20→18:43)
[2017-08-06] MEDS ORDERED: ONDANSETRON 4 MG/2 ML VIAL IVP ONE (17:20)
[2017-08-06] MEDS ORDERED: KETOROLAC 15 MG/1 ML SDV IVP ONE (18:04)
--- NOTE | 2017-08-06 19:31 | ASMTCMCOM ---
CM Note CM Note Notes: Received a call from Dr Layton at [facility] ED, requesting CM to follow-up with pts PCP, Dr Collette Tellez (p:[phone], fax: [phone]) who is with [facility], and see if Dr Tellez is aware/okay with pt frequent use of ED for chronic pain mgmt. Pt had reported to Dr Layton that she doesnt have any prescriptions for pain medications because she doesnt want to be on them due to her history of addiction/abuse. Pt reported to Dr Layton that she only uses the ED about once a month for acute pain flare-ups; however, pt has been to the ED four times in the past month. Dr Latyon concerned about pts frequent ED visits and requests for IV Dilaudid. Due to the holiday weekend, CM will follow up with pts PCP on Wednesday08/10/[address] Tellez is okay with the ED continuing to provide pain mgmt to pt in this way, or if she has other collabortive ideas on how to better treat the patient for chronic pain issues when she is seen in the ED. CM to follow. Date Signed: 08/06/2017 07:30 PM Electronically Signed By:Damaris Montero RN
[2017-08-06 19:57] VITALS: BP 158/84
--- NOTE | 2017-08-10 15:11 | ASMTCMCOM ---
CM Note CM Note Notes: CM called the office of Dr. Collette Tellez ([phone]) The energy management specialist reported that she familiar with the patient but unsure of the plan of care. "Dr. Murdock" will return the call when she is able. This telegraphic typewriter mechanic informed the energy management specialist that the doctor could speak to anyone in CM ([phone]). CM to Follow. Date Signed: 08/10/2017 03:10 PM Electronically Signed By:Rolando Freire LCSW
--- NOTE | 2017-08-10 16:09 | ASMTCMCOM ---
CM Note CM Note Notes: PCP provider Dr. Collette Tellez called to discuss pt care. She indicated that she recently prescribed Tramadol to the pt but she was unaware of the pt.'s reported level of pain. She she will reach out to the pt. to discuss a plan for pain management The reported that the pt also received care, seeking pain treatment at two other facilities in July. Pt. chart was noted for managed care. Date Signed: 08/10/2017 04:08 PM Electronically Signed By:Rolando Freire LCSW
== END 2017-08-06 19:07 | disposition home or self-care (01) ==
LOC: CED 16:45
DX: M54.5 Low back pain (principal); I10 Essential (primary) hypertension; E11.9 Type 2 diabetes mellitus without complications; Z79.4 Long term (current) use of insulin; Z79.82 Long term (current) use of aspirin; Z87.891 Personal history of nicotine dependence
CPT/HCPCS: 96374; 96375; 96376; 99284; J1170; J1885; J2405; 80048-PO

== ENCOUNTER 2017-08-10 19:30 | Emergency (ER) | payer OTHER, MEDICAID ==
[2017-08-10] MEDS ORDERED: KETOROLAC 15 MG/1 ML SDV IVP ONE (20:09)
[2017-08-10] MEDS ORDERED: HYDROmorphONE/DILAUDID 2 MG/ML INJ IVP ONE (20:09)
[2017-08-10 20:50] LABS: PLATELET COUNT 218 10^3/uL (150-400)
[2017-08-10] MEDS ORDERED: ONDANSETRON 4 MG/2 ML VIAL IVP ONE (20:53)
[2017-08-10] MEDS ORDERED: HYDROmorphONE/DILAUDID 1 MG/ML INJ IVP ONE (21:44)
[2017-08-10] MEDS ORDERED: LIDOCAINE 4%/MENTHOL 1% PATCH TD ONE (22:03)
--- NOTE | 2017-08-10 22:03 | EDPHY ---
H & P Time Seen by Provider: 08/10/17 19:52 HPI/ROS: This patient is known emergency department with history of chronic low back pain and ORIF in the past who reports a worsening of her lumbar pain since mid morning currently 9/10 intensity achy in nature identical to prior episodes of chronic low back pain exacerbations. She did not try any analgesics prior to arrival reporting that she does not like the way that she feels after tramadol and does not feel she gets significant relief from it. She reported that she did not get much relief from lidocaine patches either but admits that she has not tried multiple medications at the same time at home. Her daughter drove her in for evaluation of her symptoms. ROS: Constitutional: No fevers or chills HEENT: No complaints new line pulmonary: No shortness of breath or coughing Cardiovascular: No heart palpitations or lightheadedness. No chest pain. GI: No associated abdominal pain. She does have some nausea with her pain which is not uncommon for her. No vomiting. : No urinary symptoms. No hematuria. Neuro: No bowel or bladder incontinence. No new onset of numbness tingling or focal weakness. 10 point ROS is otherwise negative. Past Medical/Surgical History: Chronic low back pain with ORIF Currently has an appointment to be seen in [facility] in early August to evaluate for potential allergy to the metal in her hardware in her back. Morbid obesity Hypertension Smoking Status: Former smoker Physical Exam: Vital signs: Mild hypertension 151/86. Otherwise normal vitals General Appearance: Morbidly obese female Alert, no distress. Eyes: Pupils equal and round no pallor or injection. ENT, Mouth: Mucous membranes moist. Respiratory: There are no retractions, lungs are clear to auscultation. Cardiovascular: Regular rate and rhythm. No murmur gallop or rub Gastrointestinal: Abdomen is soft and nontender, no masses, bowel sounds normal. Back: Patient has bilateral lumbar tenderness. Straight leg raise is positive at 20 degrees on the left with pain in the midline of her back negative on the right. Neurological: GCS 15. She maintains normal light touch sensory exam throughout lower extremities and 5/5 strength in great toe dorsiflexion plantar flexion bilaterally. She has weak but symmetric DTRs patellar and Achilles bilaterally. Skin: Warm and dry, no rashes. Extremities are symmetrical, full range of motion. Psychiatric: Mood and affect are normal DIFFERENTIAL DIAGNOSIS: After history and physical exam differential diagnosis was considered for acute on chronic low back pain, pyelonephritis, low back strain, epidural abscess Constitutional: Initial Vital Signs Temperature (C) 36.7 C 08/10/17 19:35 Heart Rate 93 08/10/17 19:35 Respiratory Rate 18 08/10/17 19:35 Blood Pressure 151/86 H 08/10/17 19:35 O2 Sat (%) 96 08/10/17 19:35 O2 Delivery Mode Room Air Allergies/Adverse Reactions: cephalexin monohydrate [From Keflex] Allergy (Intermediate, Verified 08/10/17 19 :41) Rash meperidine HCl [From Demerol] Allergy (Intermediate, Verified 08/10/17 19:41) Vomiting Penicillins Allergy (Intermediate, Verified 08/10/17 19:41) Rash Sulfa (Sulfonamide Antibiotics) Allergy (Intermediate, Verified 08/10/17 19:41) Hives gabapentin Allergy (Verified 08/10/17 19:41) Rash Home Medications: Medication Instructions Recorded DULoxetine [Cymbalta 60 MG (*)] 60 mg PO DAILY 06/02/17 Dulaglutide [Trulicity] 1.5 mg SQ WE@1230 06/02/17 Estradiol [Estradiol 1 MG (*)] 1 mg PO DAILY 06/02/17 Furosemide [Lasix 20 MG (*)] 20 mg PO DAILY 06/02/17 Linaclotide [Linzess] 145 mcg PO DAILY 06/02/17 Lisinopril [Zestril 20 mg (*)] 20 mg PO DAILY 06/02/17 Lisinopril/Hydrochlorothiazide 1 each PO DAILY 06/02/17 [Lisinopril-Hctz 10-12.5 mg Tab] Pantoprazole Sodium [Protonix 40mg 40 mg PO DAILY 06/02/17 (*)] SIMVASTATIN 10 mg PO HS 06/02/17 rOPINIRole HCL [Requip 1mg (*)] 1 mg PO DAILY@19 PRN 06/02/17 Aspirin EC [Aspirin EC 81 mg (*)] 81 mg PO DAILY 06/08/17 DULoxetine [Cymbalta 30 MG (*)] 30 mg PO HS 06/08/17 Insulin Aspart Novolog 70/30 40 - 45 unit SC DAILYAC@1730 06/08/17 [NovoLOG MIX 70/30 VIAL] Insulin Aspart Novolog 70/30 80 unit SC DAILYAC 06/08/17 [NovoLOG MIX 70/30 VIAL] rOPINIRole HCL [Requip 1mg (*)] 2 mg PO DAILY@20 PRN 06/08/17 traMADol [Ultram 50 mg (*)] 50 - 100 mg PO Q4 PRN #20 tab 07/15/17 Lidocaine [Lidoderm] 1 each TP DAILY #15 adh..patch 08/10/17 Methocarbamol [Robaxin 750 mg (*)] 750 - 1,500 mg PO QID PRN #30 tab 08/10/17 MDM/Departure - MDM Medications Given: Discontinued Medications Hydromorphone HCl (Dilaudid) 1 mg IVP EDNOW ONE Stop: 08/10/17 20:10 Last Admin: 08/10/17 20:40 Dose: 1 mg Hydromorphone HCl (Dilaudid) 0.5 mg IVP EDNOW ONE Stop: 08/10/17 21:45 Last Admin: 08/10/17 21:48 Dose: 0.5 mg Ketorolac Tromethamine (Toradol) 15 mg IVP EDNOW ONE Stop: 08/10/17 20:10 Last Admin: 08/10/17 20:39 Dose: 15 mg Miscellaneous Medication (Icy Hot Lidocaine/Menthol 4%/1% Patch) 1 patch TD EDNOW ONE Stop: 08/10/17 22:04 Last Admin: 08/10/17 22:26 Dose: 1 patch Ondansetron HCl (Zofran) 4 mg IVP EDNOW ONE Stop: 08/10/17 20:54 Last Admin: 08/10/17 21:03 Dose: 4 mg ED Course/Re-evaluation: IV Toradol and Dilaudid with relief CBC is normal. Basic metabolic panel is normal. Urinalysis without significant abnormalities I encouraged the patient to try multiple analgesic modalities at the same time- Lidoderm patch, methocarbamol and Tylenol for future back pain. No evidence today of cauda equina syndrome or other red flag findings that would suggest epidural abscess, pyelonephritis or other. - Depart Disposition: Home, Routine, Self-Care Clinical Impression: Low back pain Qualifiers: Chronicity: chronic Back pain laterality: bilateral Sciatica presence: without sciatica Qualified Code(s): M54.5 - Low back pain Condition: Good Instructions: Back Pain (ED) Additional Instructions: Diagnosis: Low back pain Plan: Try combination of medications at the same time. 1 is unlikely to give you significant relief but often multiple medications the same time for this kind of element will be beneficial. Try combination of the lidocaine patch, methocarbamol muscle relaxant and [id number] mg per 4-6 hours. Do not exceed 3000 mg of Tylenol in 24 hr. Follow-up with primary care physician Return to the emergency department for any significant worsening despite the treatment plan. Prescriptions: Lidocaine [Lidoderm] 1 each TP DAILY #15 adh..patch Methocarbamol [Robaxin 750 mg (*)] 750 - 1,500 mg PO QID PRN #30 tab PRN Reason: Muscle Spasms Referrals: NONE *PRIMARY CARE P,. [Primary Care Provider] - As per Instructions
[2017-08-10 22:04] VITALS: BP 143/70
== END 2017-08-10 22:24 | disposition home or self-care (01) ==
LOC: CED 19:30
DX: M54.5 Low back pain (principal); I10 Essential (primary) hypertension; Z79.82 Long term (current) use of aspirin; Z87.891 Personal history of nicotine dependence
CPT/HCPCS: 96374; 96375; 96376; 99284; J1170; J1885; J2405; 80048-PO; 85025-PO

== ENCOUNTER 2017-08-23 20:35 | Emergency (ER) | payer OTHER, MEDICAID ==
[2017-08-23] MEDS ORDERED: METHOCARBAMOL 750 MG TAB PO ONE (20:46)
[2017-08-23] MEDS ORDERED: traMADol 50 MG TAB PO ONE (20:47)
--- NOTE | 2017-08-23 20:51 | EDPHY ---
H & P Time Seen by Provider: 08/23/17 20:44 HPI/ROS: CHIEF COMPLAINT: Low back pain HISTORY OF PRESENT ILLNESS: Patient is a 62-year-old morbidly obese female who comes to the emergency department complaining of chronic low back pain. She states that she ran out of her Robaxin and Ultram few days ago. Her primary has discouraged her from coming to the ER previously for pain medication. She has been referred to a pain specialist but has not yet seen one. She also states that she has seen a back specialist in the past but was fired from their practice for an argument and has not yet been referred to a new 1. She has no new symptoms today. No recent trauma or falls. No fevers or infections. No weakness numbness or paralysis. The last 2 times she was seen here she received IV Dilaudid and she is requesting more of this. REVIEW OF SYSTEMS: Constitutional: denies: chills, fever, recent illness, recent injury EENTM: denies: blurred vision, double vision, nose congestion Respiratory: denies: cough, shortness of breath Cardiac: denies: chest pain, irregular heart rate, lightheadedness, palpitations Gastrointestinal/Abdominal: denies: abdominal pain, diarrhea, nausea, vomiting, blood streaked stools Genitourinary: denies: dysuria, frequency, hematuria, pain Musculoskeletal: See HPI Skin: denies: lesions, rash, jaundice, bruising Neurological: denies: headache, numbness, paresthesia, tingling, dizziness, weakness Hematologic/Lymphatic: denies: blood clots, easy bleeding, easy bruising Immunologic/allergic: denies: HIV/AIDS, transplant EXAM: GENERAL: Well-appearing, well-nourished and in no acute distress. HEAD: Atraumatic, normocephalic. EYES: Pupils equal round and reactive to light, extraocular movements intact, sclera anicteric, conjunctiva are normal. ENT: TMs normal, nares patent, oropharynx clear without exudates. Moist mucous membranes. NECK: Normal range of motion, supple without lymphadenopathy or JVD. LUNGS: Breath sounds clear to auscultation bilaterally and equal. No wheezes rales or rhonchi. HEART: Regular rate and rhythm without murmurs, rubs or gallops. ABDOMEN: Soft, nontender, normoactive bowel sounds. No guarding, no rebound. No masses appreciated. BACK: Chronic bilateral low back pain, no radiation, no weakness or numbness. No CVA tenderness, no spinal tenderness, step-offs or deformities EXTREMITIES: Normal range of motion, no pitting or edema. No clubbing or cyanosis. NEUROLOGICAL: Cranial nerves II through XII grossly intact. Normal speech, normal gait. 5/5 strength, normal movement in all extremities, normal sensation PSYCH: Normal mood, normal affect. SKIN: Warm, dry, normal turgor, no visible rashes or lesions. Source: Patient Exam Limitations: No limitations - Personal History Tetanus Vaccine Date: <10 years - Medical/Surgical History Hx Asthma: No Hx Chronic Respiratory Disease: No Hx Diabetes: Yes Hx Cardiac Disease: No Hx Renal Disease: No Hx Cirrhosis: No Hx Alcoholism: No Hx HIV/AIDS: No Hx Splenectomy or Spleen Trauma: No Other PMH: right wrist carpal tunnel surgery, hypertension,hernia repair. back surgery with hardware. gall bladder surg. hysterectomy. MEd hx-anemia,and insulin dependant diabetes,chronic pain, ROLDAN, HTN - Family History Significant Family History: No pertinent family hx - Social History Smoking Status: Former smoker Alcohol Use: Sober Constitutional: Initial Vital Signs Temperature (C) 37 C 08/23/17 20:50 Heart Rate 82 08/23/17 20:50 Respiratory Rate 20 08/23/17 20:50 Blood Pressure 103/64 08/23/17 20:50 O2 Sat (%) 93 08/23/17 20:50 O2 Delivery Mode Room Air Allergies/Adverse Reactions: cephalexin monohydrate [From Keflex] Allergy (Intermediate, Verified 08/23/17 20 :48) Rash meperidine HCl [From Demerol] Allergy (Intermediate, Verified 08/23/17 20:48) Vomiting Penicillins Allergy (Intermediate, Verified 08/23/17 20:48) Rash Sulfa (Sulfonamide Antibiotics) Allergy (Intermediate, Verified 08/23/17 20:48) Hives gabapentin Allergy (Verified 08/23/17 20:48) Rash Home Medications: Medication Instructions Recorded DULoxetine [Cymbalta 60 MG (*)] 60 mg PO DAILY 06/02/17 Dulaglutide [Trulicity] 1.5 mg SQ WE@1230 06/02/17 Estradiol [Estradiol 1 MG (*)] 1 mg PO DAILY 06/02/17 Furosemide [Lasix 20 MG (*)] 20 mg PO DAILY 06/02/17 Linaclotide [Linzess] 145 mcg PO DAILY 06/02/17 Lisinopril [Zestril 20 mg (*)] 20 mg PO DAILY 06/02/17 Lisinopril/Hydrochlorothiazide 1 each PO DAILY 06/02/17 [Lisinopril-Hctz 10-12.5 mg Tab] Pantoprazole Sodium [Protonix 40mg 40 mg PO DAILY 06/02/17 (*)] SIMVASTATIN 10 mg PO HS 06/02/17 rOPINIRole HCL [Requip 1mg (*)] 1 mg PO DAILY@19 PRN 06/02/17 Aspirin EC [Aspirin EC 81 mg (*)] 81 mg PO DAILY 06/08/17 DULoxetine [Cymbalta 30 MG (*)] 30 mg PO HS 06/08/17 Insulin Aspart Novolog 70/30 40 - 45 unit SC DAILYAC@1730 06/08/17 [NovoLOG MIX 70/30 VIAL] Insulin Aspart Novolog 70/30 80 unit SC DAILYAC 06/08/17 [NovoLOG MIX 70/30 VIAL] rOPINIRole HCL [Requip 1mg (*)] 2 mg PO DAILY@20 PRN 06/08/17 traMADol [Ultram 50 mg (*)] 50 - 100 mg PO Q4 PRN #20 tab 07/15/17 Methocarbamol [Robaxin 750 mg (*)] 750 - 1,500 mg PO QID PRN #30 tab 08/10/17 Methocarbamol [Robaxin 500 mg (*)] 1,000 mg PO QID #20 tab 08/23/17 traMADol [Ultram 50 mg (*)] 50 mg PO Q4 #14 tab 08/23/17 Medical Decision Making ED Course/Re-evaluation: This is the patient's 3rd visit in the last few weeks for chronic pain. The previous 2 visits she received IV Dilaudid. Her primary has asked that we do not give her narcotics. I will refill her Robaxin and Ultram just for few days until she can get back to her primary is office. I will also refer her to Neurosurgery. I have strong concerns that this patient is addicted to narcotic pain medication. Feel that it would not be helpful and would likely be detrimental to continue treating her with high-dose opiates. She does not have any weakness numbness paralysis fevers or red flex for spinal cord injury or cauda equina. She understands this plan and although she is disappointed she will not get Dilaudid she understands and agrees. 9:00 p.m. when nursing staff returned to give the patient her medications and prescriptions she and her daughter had eloped. Differential Diagnosis: Partial list of the Differential diagnosis considered include but were not limited to; opiate dependency, chronic back pain, radiculopathy and although unlikely based on the history and physical exam, I also considered spinal cord injury, cauda equina, infection, fracture. I discussed these differential diagnoses and the plan with the patient as well as the usual and expected course. The patient understands that the diagnosis is provisional and that in medicine we are not always correct and that further workup is often warranted. Usual and customary warnings were given. All of the patient's questions were answered. The patient was instructed to return to the emergency department should the symptoms at all worsen or return, otherwise to followup with the physician as we discussed. - Data Points Medications Given: Discontinued Medications Methocarbamol (Robaxin) 750 mg PO EDNOW ONE Stop: 08/23/17 20:47 Last Admin: 08/23/17 21:02 Dose: Not Given Tramadol HCl (Ultram) 50 mg PO EDNOW ONE Stop: 08/23/17 20:48 Last Admin: 08/23/17 21:03 Dose: Not Given Departure - Departure Disposition: Home, Routine, Self-Care Clinical Impression: Opiate abuse, continuous Low back pain Qualifiers: Chronicity: chronic Back pain laterality: bilateral Sciatica presence: without sciatica Qualified Code(s): M54.5 - Low back pain Condition: Fair Instructions: Chronic Back Pain (ED) Referrals: ADAMA BROWN DO [Other] - As per Instructions Hammad Malagon MD [Medical Doctor] - As per Instructions Prescriptions: Methocarbamol [Robaxin 500 mg (*)] 1,000 mg PO QID #20 tab traMADol [Ultram 50 mg (*)] 50 mg PO Q4 #14 tab
[2017-08-23 20:55] VITALS: BP 103/64
--- NOTE | 2017-08-25 14:57 | EDPHY ---
[facility] Patient Name: JOLENE ESCOBEDO Rpt#: [id number] Unit Number: [id number] ER Physician: Rashel Drew MD Patient Type: DEP ER Adm Date/Source: 08/23/17 EMR Discharge Date: 08/23/17 Primary Carrier: MEDICARE OUTPATIENT EMERGENCY DEPARTMENT PROVIDER REPORT H P Time Seen by Provider: 08/23/17 20:44 HPI/ROS: CHIEF COMPLAINT: Low back pain HISTORY OF PRESENT ILLNESS: Patient is a 62-year-old morbidly obese female who comes to the emergency department complaining of chronic low back pain. She states that she ran out of her RobEeBria and PlayMotion a few days ago. Her primary has discouraged her from coming to the ER previously for pain medication. She has been referred to a pain specialist but has not yet seen one. She also states that she has seen a back specialist in the past but was fired from their practice for an argument and has not yet been referred to a new one. She has no new symptoms today. No recent trauma or falls. No fevers or infections. No weakness numbness or paralysis. The last 2 times she was seen here she received IV Dilaudid and she is requesting more of this. REVIEW OF SYSTEMS: Constitutional: denies: chills, fever, recent illness, recent injury EENTM: denies: blurred vision, double vision, nose congestion Respiratory: denies: cough, shortness of breath Cardiac: denies: chest pain, irregular heart rate, lightheadedness, palpitations Gastrointestinal/Abdominal: denies: abdominal pain, diarrhea, nausea, vomiting, blood streaked stools Genitourinary: denies: dysuria, frequency, hematuria, pain Musculoskeletal: See HPI Skin: denies: lesions, rash, jaundice, bruising Neurological: denies: headache, numbness, paresthesia, tingling, dizziness, weakness Hematologic/Lymphatic: denies: blood clots, easy bleeding, easy bruising Immunologic/allergic: denies: HIV/AIDS, transplant EXAM: GENERAL: Well-appearing, well-nourished and in no acute distress. HEAD: Atraumatic, normocephalic. EYES: Pupils equal round and reactive to light, extraocular movements intact, sclera anicteric, conjunctiva are normal. ENT: TMs normal, nares patent, oropharynx clear without exudates. Moist mucous membranes. NECK: Normal range of motion, supple without lymphadenopathy or JVD. LUNGS: Breath sounds clear to auscultation bilaterally and equal. No wheezes rales or rhonchi. HEART: Regular rate and rhythm without murmurs, rubs or gallops. ABDOMEN: Soft, nontender, normoactive bowel sounds. No guarding, no rebound. No masses appreciated. BACK: Chronic bilateral low back pain, no radiation, no weakness or numbness. No CVA tenderness, no spinal tenderness, step-offs or deformities EXTREMITIES: Normal range of motion, no pitting or edema. No clubbing or cyanosis. NEUROLOGICAL: Cranial nerves II through XII grossly intact. Normal speech, normal gait. 5/5 strength, normal movement in all extremities, normal sensation PSYCH: Normal mood, normal affect. SKIN: Warm, dry, normal turgor, no visible rashes or lesions. Source: Patient Exam Limitations: No limitations - Personal History Tetanus Vaccine Date: <10 years - Medical/Surgical History Hx Asthma: No Hx Chronic Respiratory Disease: No Hx Diabetes: Yes Hx Cardiac Disease: No Hx Renal Disease: No Hx Cirrhosis: No Hx Alcoholism: No Hx HIV/AIDS: No Hx Splenectomy or Spleen Trauma: No Other PMH: right wrist carpal tunnel surgery, hypertension,hernia repair. back surgery with hardware. gall bladder surg. hysterectomy. MEd hx-anemia,and insulin dependant diabetes,chronic pain, ROLDAN, HTN - Family History Significant Family History: No pertinent family hx - Social History Smoking Status: Former smoker Alcohol Use: Sober Constitutional: Initial Vital Signs Temperature (C) 37 C 08/23/17 20:50 Heart Rate 82 08/23/17 20:50 Respiratory Rate 20 08/23/17 20:50 Blood Pressure 103/64 08/23/17 20:50 O2 Sat (%) 93 08/23/17 20:50 O2 Delivery Mode Room Air Allergies/Adverse Reactions: cephalexin monohydrate [From Keflex] Allergy (Intermediate, Verified 08/23/17 20:48) Rash meperidine HCl [From Demerol] Allergy (Intermediate, Verified 08/23/17 20:48) Vomiting Penicillins Allergy (Intermediate, Verified 08/23/17 20:48) Rash Sulfa (Sulfonamide Antibiotics) Allergy (Intermediate, Verified 08/23/17 20:48) Hives gabapentin Allergy (Verified 08/23/17 20:48) Rash Home Medications: Medication Instructions Recorded DULoxetine [Cymbalta 60 MG (*)] 60 mg PO DAILY 06/02/17 Dulaglutide [Trulicity] 1.5 mg SQ WE@1230 06/02/17 Estradiol [Estradiol 1 MG (*)] 1 mg PO DAILY 06/02/17 Furosemide [Lasix 20 MG (*)] 20 mg PO DAILY 06/02/17 Linaclotide [Linzess] 145 mcg PO DAILY 06/02/17 Lisinopril [Zestril 20 mg (*)] 20 mg PO DAILY 06/02/17 Lisinopril/Hydrochlorothiazide 1 each PO DAILY 06/02/17 [Lisinopril-Hctz 10-12.5 mg Tab] Pantoprazole Sodium [Protonix 40mg 40 mg PO DAILY 06/02/17 (*)] SIMVASTATIN 10 mg PO HS 06/02/17 rOPINIRole HCL [Requip 1mg (*)] 1 mg PO DAILY@19 PRN 06/02/17 Aspirin EC [Aspirin EC 81 mg (*)] 81 mg PO DAILY 06/08/17 DULoxetine [Cymbalta 30 MG (*)] 30 mg PO HS 06/08/17 Insulin Aspart Novolog 70/30 40 - 45 unit SC DAILYAC@1730 06/08/17 [NovoLOG MIX 70/30 VIAL] Insulin Aspart Novolog 70/30 80 unit SC DAILYAC 06/08/17 [NovoLOG MIX 70/30 VIAL] rOPINIRole HCL [Requip 1mg (*)] 2 mg PO DAILY@20 PRN 06/08/17 traMADol [Ultram 50 mg (*)] 50 - 100 mg PO Q4 PRN #20 tab 07/15/17 Methocarbamol [Robaxin 750 mg (*)] 750 - 1,500 mg PO QID PRN #30 tab 08/10/17 Methocarbamol [Robaxin 500 mg (*)] 1,000 mg PO QID #20 tab 08/23/17 traMADol [Ultram 50 mg (*)] 50 mg PO Q4 #14 tab 08/23/17 Medical Decision Making ED Course/Re-evaluation: This is the patient's 3rd visit in the last few weeks for chronic pain. The previous 2 visits she received IV Dilaudid. Her primary has asked that we do not give her narcotics. Have reviewed her visit notes from the . I will refill her Robaxin and Ultram just for few days until she can get back to her primary is office. I will also refer her to Neurosurgery. I have strong concerns that this patient is addicted to narcotic pain medication. Feel that it would not be helpful and would likely be detrimental to continue treating her with high-dose opiates. She does not have any weakness, numbness, paralysis, fevers or red flags for spinal cord injury or cauda equina. She understands this plan and although she is disappointed she will not get Dilaudid she understands and agrees. 9:00 p.m. when nursing staff returned to give the patient her medications and prescriptions she and her daughter had eloped. Differential Diagnosis: Partial list of the Differential diagnosis considered include but were not limited to; opiate dependency, chronic back pain, radiculopathy and although unlikely based on the history and physical exam, I also considered spinal cord injury, cauda equina, infection, fracture. I discussed these differential diagnoses and the plan with the patient as well as the usual and expected course. The patient understands that the diagnosis is provisional and that in medicine we are not always correct and that further workup is often warranted. Usual and customary warnings were given. All of the patient's questions were answered. The patient was instructed to return to the emergency department should the symptoms at all worsen or return, otherwise to followup with the physician as we discussed. - Data Points Medications Given: Discontinued Medications Methocarbamol (Robaxin) 750 mg PO EDNOW ONE Stop: 08/23/17 20:47 Last Admin: 08/23/17 21:02 Dose: Not Given Tramadol HCl (Ultram) 50 mg PO EDNOW ONE Stop: 08/23/17 20:48 Last Admin: 08/23/17 21:03 Dose: Not Given Departure - Departure Disposition: Home, Routine, Self-Care Clinical Impression: Opiate abuse, continuous Low back pain Qualifiers: Chronicity: chronic Back pain laterality: bilateral Sciatica presence: without sciatica Qualified Code(s): M54.5 - Low back pain Condition: Fair Instructions: Chronic Back Pain (ED) Referrals: ADAMA BROWN DO [Other] - As per Instructions Hammad Malagon MD [Medical Doctor] - As per Instructions Prescriptions: Methocarbamol [Robaxin 500 mg (*)] 1,000 mg PO QID #20 tab traMADol [Ultram 50 mg (*)] 50 mg PO Q4 #14 tab *This report may have been compiled using a voice recognition system, and might contain typographical errors and blanks.* Rashel Drew MD 08/24/17 0758 <Electronically signed by Rashel Drew MD> 48 T: COLETTE 08/23/[id number] CC: PCP Not In, Dictionary
== END 2017-08-23 21:06 | disposition home or self-care (01) ==
LOC: CED 20:35
DX: M54.5 Low back pain (principal); F11.10 Opioid abuse, uncomplicated; I10 Essential (primary) hypertension; E11.9 Type 2 diabetes mellitus without complications; Z79.4 Long term (current) use of insulin; Z79.82 Long term (current) use of aspirin; Z87.891 Personal history of nicotine dependence

== ENCOUNTER 2017-12-13 14:25 | Emergency (ER) | payer OTHER, MEDICAID ==
[2017-12-13] MEDS ORDERED: IBUPROFEN 200 MG TAB PO ONE (15:17)
--- NOTE | 2017-12-13 15:17 | EDPHY ---
H & P Time Seen by Provider: 12/13/17 15:04 HPI/ROS: HPI Fell backwards on stairs. Left knee injury. 62-year-old female by private vehicle with her friend. This patient was walking up 3 stairs. She reports that when she got to the top of 3rd stair her left knee buckled. She fell backwards in awkwardly on the left knee. She did not hit her head. She denies any neck pain. There was no loss of consciousness. She denies any associated chest pain, shortness of breath, palpitations or lightheadedness. She complains of isolated left knee pain to the medial aspect of the knee joint. No other extremity pain. ROS: Constitutional: No fever, no chills. No weakness. Eyes: No changes in vision. Respiratory: No cough. No shortness of breath. Cardiac: No chest pain, no palpitations. Gastrointestinal: No abdominal pain, no vomiting. Musculoskeletal: No back pain. No neck pain. As above. Skin: No lacerations or abrasions. Neurological: No headache. No focal weakness or altered sensation. Past medical history: Splenectomy, right carpal tunnel surgery, hypertension, abdominal hernia repair, back surgery with hardware, cholecystectomy, hysterectomy, anemia, type 1 diabetes, chronic pain with narcotic dependence, migraine headaches. Social history: She is here with her friend. Nonsmoker. No alcohol. She ambulates at home without a cane or walker. Physical Exam: General Appearance: Alert, no distress. This patient is responding to questions appropriately and in full sentences. This patient appears well- hydrated and well-nourished. Head: Normocephalic atraumatic. Face: Facial bones are stable on palpation. Eyes: Pupils equal and round and reactive to light, no pallor or injection. No lid erythema or edema. ENT, Mouth: Mucous membranes moist. Dentition is intact. No malocclusion of the jaw. No tongue lacerations or abrasions. Pharynx is clear. The bilateral nasal canals are clear. No septal hematoma. Respiratory: There are no retractions, lungs are clear to auscultation with good air movement bilaterally. Chest wall is stable to AP and lateral palpation. Cardiovascular: Regular rate and rhythm. No murmur. Gastrointestinal: Abdomen is soft and nontender, no masses, bowel sounds normal. Neurological: Motor sensory function is intact. Cranial nerves are normal. Cerebellar function intact. Skin: Warm and dry, no rashes. No lacerations, abrasions or contusions. Musculoskeletal: Neck is supple and nontender. The trachea is midline. No midline cervical, thoracic, lumbar or sacral tenderness on palpation. No flank tenderness on palpation. Left knee exam: She has some tenderness over the medial anterior joint line. There is no significant effusion or swelling relative to her right knee. The left knee is stable to valgus and varus stress testing as well as anterior and posterior drawer testing. The left lower extremity is neurovascularly intact. Extremities are symmetrical, full range of motion except noted. All joints in the bilateral upper and bilateral lower extremities range without pain or impingement except noted. No tenderness on palpation of the long bones in the bilateral upper and bilateral lower extremities except noted. Psychiatric: No agitation. No depression. Database: EKG: Imaging: Left knee x-ray series: Osteoarthritis and chronic degenerative changes. No fracture, subluxation, dislocation appreciated. Interpreted by me. Procedures: Emergency department course: Triage vital signs reviewed. She is mildly hypertensive. Mildly tachycardic in triage. She was not tachycardic on my exam. She will be given 600 mg of ibuprofen. She was sent for left knee series x-ray. 3:45 p.m., the patient was re-evaluated. Results of x-rays discussed with her. Her left knee was placed in a knee immobilizer brace. She was provided with crutches and instructions on weight-bearing as tolerated when ambulating with the brace on only. She will follow up with Orthopedics for re-evaluation in 2- 3 days. I explained to her that advanced imaging such as an MRI may be obtained at that time. She feels comfortable with this plan and comfortable going home with her friend. Follow-up and return to emergency department precautions thoroughly reviewed with her. All of her questions were answered. She was discharged in good condition. Differential Diagnosis: The differential diagnosis on this patient includes but is not limited to medial collateral ligament strain versus tear, ACL injury. Fracture, subluxation, dislocation, traumatic brain injury, cervical spine injury unlikely. This represents a partial list of diagnoses considered. These considerations are based on history, physical exam, past history, reassessment and diagnostic testing. Smoking Status: Former smoker Constitutional: Initial Vital Signs Temperature (C) 37.0 C 10/01/18 14:40 Heart Rate 113 H 12/13/17 14:40 Respiratory Rate 16 12/13/17 14:40 Blood Pressure 140/59 H 12/13/17 14:40 O2 Sat (%) 96 12/13/17 14:40 O2 Delivery Mode Room Air Allergies/Adverse Reactions: cephalexin monohydrate [From Keflex] Allergy (Intermediate, Verified 12/13/17 15 :00) Rash meperidine HCl [From Demerol] Allergy (Intermediate, Verified 12/13/17 15:00) Vomiting Penicillins Allergy (Intermediate, Verified 12/13/17 15:00) Rash Sulfa (Sulfonamide Antibiotics) Allergy (Intermediate, Verified 12/13/17 15:00) Hives gabapentin Allergy (Verified 12/13/17 15:00) Rash Home Medications: Medication Instructions Recorded DULoxetine [Cymbalta 60 MG (*)] 60 mg PO DAILY 06/02/17 Dulaglutide [Trulicity] 1.5 mg SQ WE@1230 06/02/17 Estradiol [Estradiol 1 MG (*)] 1 mg PO DAILY 06/02/17 Furosemide [Lasix 20 MG (*)] 20 mg PO DAILY 06/02/17 Linaclotide [Linzess] 145 mcg PO DAILY 06/02/17 Lisinopril [Zestril 20 mg (*)] 20 mg PO DAILY 06/02/17 Lisinopril/Hydrochlorothiazide 1 each PO DAILY 06/02/17 [Lisinopril-Hctz 10-12.5 mg Tab] SIMVASTATIN 10 mg PO HS 06/02/17 rOPINIRole HCL [Requip 1mg (*)] 1 mg PO DAILY@19 PRN 06/02/17 Aspirin EC [Aspirin EC 81 mg (*)] 81 mg PO DAILY 06/08/17 DULoxetine [Cymbalta 30 MG (*)] 30 mg PO HS 06/08/17 Insulin Aspart Novolog 70/30 40 - 45 unit SC DAILYAC@1730 06/08/17 [NovoLOG MIX 70/30 VIAL] Insulin Aspart Novolog 70/30 80 unit SC DAILYAC 06/08/17 [NovoLOG MIX 70/30 VIAL] Medical Decision Making - Data Points Medications Given: Discontinued Medications Ibuprofen (Motrin) 600 mg PO EDNOW ONE Stop: 12/13/17 15:18 Last Admin: 12/13/17 15:24 Dose: Not Given Departure - Departure Disposition: Home, Routine, Self-Care Clinical Impression: Left knee injury Condition: Good Instructions: Knee Sprain (ED), Hinged Knee Brace (ED) Additional Instructions: Read and follow provided instructions. Follow-up with Orthopedics, Dr. Rivera, in 2-3 days for re-evaluation as discussed. Ibuprofen dosin mg every 6 hours with meals for the next 3 days only. Take only as needed for pain. Keep brace on when up and ambulating. Weightbear as tolerated using crutches. Return to the emergency department for worsening pain, swelling, discoloration or other serious concerns. Referrals: Riley Rivera MD [Medical Doctor] - As per Instructions
[2017-12-13 16:21] VITALS: BP 184/85
== END 2017-12-13 16:10 | disposition home or self-care (01) ==
LOC: CED 14:25
DX: S89.92XA Unspecified injury of left lower leg, initial encounter (principal); W10.8XXA Fall (on) (from) other stairs and steps, initial encounter; Y99.8 Other external cause status
CPT/HCPCS: 73564; 99282; L1832

== ENCOUNTER 2018-03-03 15:34 | Observation (INO) | payer OTHER, MEDICAID ==
--- NOTE | 2018-03-03 16:40 | ASMTCMCOM ---
CM Note CM Note Notes: 03/03/2018 Case Management Note Reviewed chart. Noted frequent ED visits. Pt admitted for n/v/d, on contact precautions. Pt lives with daughter. Met w/daughter Buffy Santana [phone] to discuss discharge needs. Discussed [facility]. Buffy is interested in pt being screened for eligibility. Provided brochure. Phone call to [facility] enrollment [phone]. web content specialist to screen tomorrow. Case Management d/c poc: to be determined. Case Management to follow. Date Signed: 03/03/2018 04:40 PM Electronically Signed By:Charley Hussein RN
[2018-03-03] MEDS ORDERED: ONDANSETRON DISINTEGRATING 4 MG TAB PO PRN ×2 (17:16→20:07)
[2018-03-03] MEDS ORDERED: ACETAMINOPHEN 325 MG TAB PO PRN (17:16)
[2018-03-03] MEDS ORDERED: D50W 25 GM/50 ML SYR IVP PRN (17:23)
[2018-03-03] MEDS ORDERED: POTASSIUM CL 20 MEQ TAB PO ONE (17:54)
--- NOTE | 2018-03-03 17:56 | PDGENHP ---
<Nai Zamora - Last Filed: 03/03/18 18:48> History and Physical - Chief Complaint Abdominal pain, Nausea, Vomiting, Diarrhea - History of Present Illness 62 y/o female with history of chronic abdominal pain presents as a direct admit for one week worth of abdominal pain, nausea, vomiting and episodic diarrhea. She reports nausea started first and then her abdominal pain which she describes as a band across her mid-abdomen that feels tight and stiff. During the evaluation, she sporadically becomes emotional and clenches her stomach saying she doesn't want to and doesn't want her organs to shut down. Zofran assists with her nausea but she continues to have abdominal pain. She does not have an appetite and she reports vomiting and occasional diarrhea ( loose, soft stool.) Denies hematuria, hematochezia, melena, chest pains, SOB, chills, fevers. After reviewing her past history, apparently she has been evaluated on 2 or more occasions for similar symptoms. She was seen in the ER at [facility] yesterday. CT Abdomen/Pelvis w/ contrast was performed and results were unremarkable (no change to moderate hepatitis steatosis, nothing to indicate her abdominal symptoms). EKG NSR. Lab work was unremarkable - initially elevated lactic acid (3.6) but was given IV fluids and before d/c'ed, lactic acid was 1.9. She was d/c'ed from ER and instructed to f/u with Dr. Jason Contreras today. Dr. Contreras admitted pt for intractable nausea and vomiting. He would like admittance for observation and management. Past Medical/Surgical History 1. RLQ abdominal pain (since 2013); had abdominal surgery 05/2017 and told she had many adhesions 2. Chronic constipation 3. Chronic pain 4. C-Diff (11/21/2017) 5. HTN 6. Fibromyalgia 7. Hypoxemia 8. Morbid obesity 9. Iron-Deficient Anemia 10. Lumbar stenosis 11. PATRICIO, does not tolerate CPAP, 4L o2 @HS 12. RLS 13. Reflux 14. IDDM Social 1. Lives with her daughter, Buffy 2. Ambulates with walker. Cannot walk long distances. Needs motorized scooter/ wheelchair for long distances 3. Denies alcohol or illicit drug use. Uses CBD oil for her restless leg syndrome. Denies tobacco use. Vitals 152/89 77 HR 12 Respirations 36.8c 94% RA History Information - Allergies/Home Medication List Allergies/Adverse Reactions: cephalexin monohydrate [From Keflex] Allergy (Intermediate, Verified 12/13/17 15 :00) Rash meperidine HCl [From Demerol] Allergy (Intermediate, Verified 12/13/17 15:00) Vomiting Penicillins Allergy (Intermediate, Verified 12/13/17 15:00) Rash Sulfa (Sulfonamide Antibiotics) Allergy (Intermediate, Verified 12/13/17 15:00) Hives gabapentin Allergy (Verified 12/13/17 15:00) Rash Home Medications: DULoxetine [Cymbalta 60 MG (*)] 60 mg PO DAILY 06/02/17 [Last Taken 06/07/17] Dulaglutide [Trulicity] 1.5 mg SQ WE@1230 06/02/17 [Last Taken 02/23/18] Estradiol [Estradiol 1 MG (*)] 1 mg PO DAILY 06/02/17 [Last Taken 06/07/17] Furosemide [Lasix 20 MG (*)] 20 mg PO DAILY 06/02/17 [Last Taken 06/06/17] Linaclotide [Linzess] 145 mcg PO DAILY 06/02/17 [Last Taken 06/07/17] Lisinopril [Zestril 20 mg (*)] 20 mg PO DAILY 06/02/17 [Last Taken 06/06/17] SIMVASTATIN 10 mg PO HS 06/02/17 [Last Taken 06/07/17] rOPINIRole HCL [Requip 1mg (*)] 1 mg PO DAILY@19 PRN 06/02/17 [Last Taken ] Aspirin EC [Aspirin EC 81 mg (*)] 81 mg PO DAILY 06/08/17 [Last Taken 06/07/17] DULoxetine [Cymbalta 30 MG (*)] 30 mg PO HS 06/08/17 [Last Taken 06/07/17] Insulin Aspart Novolog 70/30 [NovoLOG MIX 70/30 VIAL] 60 unit SC DAILYAC@1730 [Last Taken 06/07/17] Insulin Aspart Novolog 70/30 [NovoLOG MIX 70/30 VIAL] 75 unit SC DAILYAC [Last Taken 06/08/17] Dicyclomine [Bentyl 20 MG (*)] 20 mg PO TID 03/03/18 [Last Taken Unknown] Lisinopril/Hctz 20/12.5MG [Zestoretic/Prinzide 20/12.5MG (*)] 1 ea PO DAILY [Last Taken Unknown] Nystatin Powder [Mycostatin Powder (RX)] 1 benny TP TID PRN 03/03/18 [Last Taken Unknown] Ondansetron Odt [Zofran Odt 4 mg (*)] 4 mg PO Q4 PRN 03/03/18 [Last Taken Unknown] Pantoprazole Sodium [Protonix 40mg (*)] 40 mg PO DAILY 03/03/18 [Last Taken Unknown] Promethazine HCl [Phenergan 25mg (*)] 25 mg PO Q6 PRN 03/03/18 [Last Taken Unknown] rOPINIRole HCL [Requip 1mg (*)] 2 mg PO HS PRN 03/03/18 [Last Taken Unknown] I have personally reviewed and updated: family history, medical history, social history, surgical history Past Medical History: See HPI list - Surgical History Reports: appendectomy, cholecystectomy, hysterectomy, spinal surgery Additional surgical history: See HPI list - Family History Positive for: diabetes type II, CAD - Social History Smoking Status: Former smoker Alcohol Use: None Drug Use: None Review of Systems Review of Systems: ROS: 10pt was reviewed & negative except for what was stated in HPI & below Constitutional: Reports: malaise, recent illness EENMT: Reports: no symptoms Cardiac: Reports: no symptoms Respiratory: Reports: no symptoms Gastrointestinal: Reports: vomitting, abdominal pain, diarrhea, nausea Genitourinary: Reports: no symptoms Muscolosketal: Reports: no symptoms Skin: Reports: no symptoms Neurological: Reports: no symptoms Hematologic/Lymphatic: Reports: no symptoms Immunologic/Allergy: Reports: other (See allergy list) Physical Exam Physical Exam: Outside lab data and imaging reviewed Temp Pulse Resp BP Pulse Ox 36.8 C 77 12 152/69 H 94 03/03/18 16:20 03/03/18 16:20 03/03/18 16:20 03/03/18 16:20 03/03/18 16:20 Constitutional: obese, uncomfortable Eyes: PERRL, anicteric sclera, EOMI Ears, Nose, Mouth, Throat: moist mucous membranes, hearing normal, ears appear normal, no oral mucosal ulcers Cardiovascular: regular rate and rhythym, no murmur, rub, or gallop, No edema Peripheral Pulses: 2+: dorsalis-pedis (R) (Radial 2+), dorsalis-pedis (L) ( Radial 2+) Respiratory: no respiratory distress, no rales or rhonchi, clear to auscultation Gastrointestinal: normoactive bowel sounds, no palpable masses, tenderness, guarding Genitourinary: no bladder fullness, no bladder tenderness Skin: warm, normal color, no rashes or abrasions, no fluctuance, no induration, No mottled Musculoskeletal: full muscle strength, no muscle tenderness, normal joint ROM, no joint effusions Neurologic: AAOx3, sensation intact bilaterally, CN II-XII Intact Psychiatric: not encephalopathic, thought process linear, anxious Lymph, Heme, Immunologic: no cervical LAD, no supraclavicular LAD Assessment & Plan Plan: 62 y/o female presents with abdominal pain, nausea, vomiting and diarrhea. She was seen at [facility] ER yesterday and all lab work and imaging were unremarkable. She is being admitted for observation and management of her intractable pain, nausea, vomiting. #Intractable nausea, vomiting, pain -IV NS -Anti-emetics PRN (Zofran and Phenergan) -Dilaudid and Toradol IVP once for pain control -Potassium was 3.4 yesterday. Most likely d/t emesis and diarrhea. Will replace with PO Potassium and recheck with CBC/CMP tomorrow morning. -Encouraged pt to drink broth #Diarrhea: hx of c-diff. Will check GI panel. Contact precautions initiated. #Diabetes: will use insulin sliding scale. ACHS glucose checks. #Morbid obesity -PT/OT to evaluate #Restless leg syndrome: she may continue requip. Once pharmacy reviews home medications, this can be reconciled and given to the pt. Diet: Carb-Controlled VTE ppx: SCDs (if this bothers her RLS, then may d/c SCDs) Code: Full Dispo: Admit to obs <Amparo Belcher - Last Filed: 03/04/18 01:45> History and Physical - History of Present Illness Review of Systems Review of Systems: Physical Exam Physical Exam: Temp Pulse Resp BP Pulse Ox 36.6 C 79 20 106/69 94 03/03/18 22:43 03/03/18 22:43 03/03/18 22:43 03/03/18 22:43 03/03/18 22:43 Lab Data & Imaging Review POC Glucose 187 mg/dL (70-100) H 03/03/18 21:17 Assessment & Plan Plan: PHYSICIAN ADDENDUM: 62yo F w/ extensive workup for abd pain who presents with persistent, recurrent abd pain. Spoke w/ Dr. Contreras and Constance Mcdaniels who will continue to follow pt. Check lipase, troponin. Consider workup for porphyria if it has not been done already. Consider GI consult to do an EGD to eval for peptic ulcer (last one was in October). Agree w/ above recs.
[2018-03-03] MEDS ORDERED: KETOROLAC 15 MG/1 ML SDV IVP ONE (17:57)
[2018-03-03] MEDS ORDERED: HYDROmorphONE/DILAUDID 1 MG/ML INJ IVP ONE (17:58)
[2018-03-03] MEDS: ONDANSETRON 4 MG/2 ML VIAL IVP PRN (18:14)
[2018-03-03] MEDS ORDERED: PROMETHAZINE HCL 25 MG/ML INJ IVP PRN (18:35)
[2018-03-03] MEDS ORDERED: HYDROCODONE/APAP 5/325 TAB PO PRN (19:17)
[2018-03-03] MEDS ORDERED: HYDROmorphONE/DILAUDID 1 MG/ML INJ IVP PRN (19:18)
[2018-03-03] MEDS ORDERED: NYSTATIN POWDER 15 GM BTL TP PRN (20:07)
[2018-03-03] MEDS ORDERED: PROMETHAZINE HCL 25 MG TAB PO PRN (20:07)
[2018-03-03] MEDS: DICYCLOMINE 20 MG TAB PO SCH (20:50)
[2018-03-03] MEDS ORDERED: DULoxetine 30 MG CAP PO SCH (21:00)
[2018-03-04] MEDS ORDERED: KETOROLAC 15 MG/1 ML SDV IVP SCH
[2018-03-04] MEDS: NS 1,000 ML IV SCH ×2 (00:23→10:56)
[2018-03-04] MEDS: KETOROLAC 15 MG/1 ML SDV IVP PRN ×2 (00:24→07:12)
[2018-03-04] MEDS ORDERED: CYCLOBENZAPRINE 10 MG TAB PO PRN (01:41)
[2018-03-04] MEDS ORDERED: MAG HYDROX/AL HYDROX/SIMETH 30 ML UDCUP PO PRN (01:42)
[2018-03-04] MEDS: ONDANSETRON 4 MG/2 ML VIAL IVP PRN ×3 (04:22→12:22)
[2018-03-04 06:06] LABS: PLATELET COUNT 190 10^3/uL (150-400)
[2018-03-04] MEDS ORDERED: INSULIN LISPRO 100 UNIT/ML SC SCH (08:00)
[2018-03-04 08:18] VITALS: BP 128/60
[2018-03-04] MEDS: DICYCLOMINE 20 MG TAB PO SCH (08:40)
[2018-03-04] MEDS ORDERED: ESTRADIOL 1 MG TAB PO SCH (09:00)
[2018-03-04] MEDS ORDERED: LISINOPRIL/HCTZ 20/12.5MG 1 EA TAB PO SCH (09:00)
[2018-03-04] MEDS ORDERED: Linaclotide [Linzess] 145 MCG PO SCH (09:00)
[2018-03-04] MEDS ORDERED: PANTOPRAZOLE SODIUM 40 MG TAB PO SCH (09:00)
[2018-03-04] MEDS ORDERED: LISINOPRIL 20 MG TAB PO SCH (09:00)
[2018-03-04] MEDS ORDERED: FUROSEMIDE 20 MG TAB PO SCH (09:00)
[2018-03-04] MEDS ORDERED: ASPIRIN EC 81 MG TAB PO SCH (09:00)
[2018-03-04] MEDS ORDERED: DULoxetine 60 MG CAP PO SCH (09:00)
--- NOTE | 2018-03-04 14:12 | HOSPPROG ---
Hospitalist Progress Note Assessment/Plan: 62 yo F w chronic abd pain, recent IFRAH, here w acute on chronic abd pain , unwitnessed N/V/D abdominal pain: no white count/fever benign exam recent imaging at [facility] unremarkable this is functional abdominal pain no further workup no narcotics- she has frequent visits requesting dilaudid and I am uncomfortable with her relationship w narcotic pain medicines n/vom/diarrhea: tiny amount of diarrhea seen by nursing, no vomiting noted labs do not suggest volume depletion po challenge chronic RLQ pain: felt possibly 2/2 adhesions, but had surgery and no real change dispo: will dc today Subjective: anxious. having abdominal ppain. records reviewed Objective: Vital Signs Temp Pulse Resp BP Pulse Ox 36.7 C 86 16 128/60 H 94 03/04/18 08:00 03/04/18 09:20 03/04/18 08:00 03/04/18 09:20 03/04/18 09:20 Laboratory Results 03/04/18 05:10 03/04/18 05:10 03/03/18 03/04/18 03/05/18 05:59 05:59 05:59 Output Total 100 Balance -100 - Physical Exam Constitutional: no apparent distress, appears nourished Eyes: PERRL, anicteric sclera Ears, Nose, Mouth, Throat: moist mucous membranes, hearing normal Cardiovascular: regular rate and rhythym, no murmur, rub, or gallop, No tachycardia Respiratory: no respiratory distress, no rales or rhonchi Gastrointestinal: normoactive bowel sounds, soft, non-tender abdomen, No guarding, No rebound, No distension Genitourinary: No loyola in urethra Skin: warm, normal color Musculoskeletal: full muscle strength Neurologic: AAOx3 ICD10 Worksheet Patient Problems: Problems Problem Status Onset Abdominal pain Acute Incisional hernia Acute Low back pain Acute Right lower quadrant pain Acute
--- NOTE | 2018-03-04 15:25 | ASMTLACE ---
LACE Length of stay for Answers: 1 day current admission Acuity / Level of Answers: No Care: Did the patient have an inpatient admission? Comorbidities - select Answers: Diabetes (uncontrolled or all that apply controlled) Opioid dependence / Chronic pain Other Notes: h/o lumbar fusion, HTN, obesity Score: 7 Date Signed: 03/04/2018 03:24 PM Electronically Signed By:Bridgett Maldonado RN
--- NOTE | 2018-03-04 15:26 | ASMTCMCOM ---
CM Note CM Note Notes: Pt discharging back home w/dtr, OT cleared pt for home, PT did not see her because pt declined. CM available for any changes. DC Plan: Independent Date Signed: 03/04/2018 03:26 PM Electronically Signed By:Bridgett Maldonado RN
== END 2018-03-04 15:30 | disposition home or self-care (01) ==
LOC: F3E 16:04
PROVIDERS: ADMIT Internal Medicine; ATTEND Internal Medicine
DX: R10.9 Unspecified abdominal pain (principal); R11.2 Nausea with vomiting, unspecified; R19.7 Diarrhea, unspecified
CPT/HCPCS: 97165; G0378; G8987; G8988; J1170; J1885; J2405; J2550

== ENCOUNTER → 2018-03-16 | Outpatient (CLI) | payer OTHER, MEDICAID | LOC: FIMAGING 09:05 | PROVIDERS: ATTEND Physician Assistant | DX: R10.9 Unspecified abdominal pain (principal) ==